=== PATIENT | female | born 1980 | race Caucasian/White ===

== ENCOUNTER 2020-04-26 09:57 | Emergency (ER) | payer OTHER, SELFPAY ==
--- NOTE | 2020-04-26 | ECG_ITS ---
Test Reason : CHEST PAIN Blood Pressure : / mmHG Vent. Rate : 075 BPM Atrial Rate : 075 BPM P-R Int : 134 ms QRS Dur : 068 ms QT Int : 380 ms P-R-T Axes : 070 049 010 degrees QTc Int : 424 ms Normal sinus rhythm with sinus arrhythmia Normal ECG No previous ECGs available Referred By: Generic ED Physician Electronically Signed By:LANE FU
--- NOTE | 2020-04-26 10:30 | ED.GENADULT ---
HPI - General Adult General Chief complaint: Anxiety Stated complaint: chest pain Time Seen by Provider: 04/26/20 10:30 Related Data Allergies Allergy/AdvReac Type Severity Reaction Status Date / Time oxycodone AdvReac Nausea and Verified 04/26/20 10:33 Vomiting PMFSH Past Medical History Medical History (Updated 04/26/20 @ 10:35 by Olimpia Borden) Anxiety Course Course Course Narrative: 1030-This is rapid medical exam. 39 yo female with past medical history of anxiety, panic attacks here with chest pain, bilateral arm pain, anxiety, shortness of breath x several weeks. Not sleeping or eating. Taking hydroxyzine PRN with no relief. No SI/HI. Increased stress at work, also had elective one month ago. Will check EKG, labs. Deferred HPI, ROS and PE to primary provider.
[2020-04-26 10:33] VITALS: BP 109/78; PULSE 76; RESP 18; TEMP 35.8; O2SAT 97; BMI 19.9
[2020-04-26 11:04] LABS: MANUAL DIFF FLAG NO
[2020-04-26 11:07] LABS: Basophils Percent Auto 0.3 % (0-2); Eosinophils Absolute Auto 0.1 X10*3/uL (0.0-0.4); Eosinophils Percent Auto 0.7 % (0-4); Hematocrit 39.2 % (37-47); Hemoglobin 13.2 g/dl (12.0-16.0); Imm Gran Abs Auto 0.05 X10*3/uL (0.00-0.03); Imm Gran Pct Auto 0.4 % (0.0-0.4); Lymphocytes Absolute Auto 2.1 X10*3/uL (1.2-4.9); Lymphocytes Percent Auto 18.3 % (20-40); Mean Corpuscular HGB Conc 33.7 g/dl (31.0-35.0); Mean Corpuscular Hemoglobin 31.3 pg (27.0-33.0); Mean Corpuscular Volume 92.9 fL (80-98); Mean Platelet Volume 8.8 fL (9.4-12.3); Monocytes Absolute Auto 0.9 X10*3/uL (0.1-1.2); Monocytes Percent Auto 7.5 % (2-11); Neutrophils Absolute Auto 8.4 X10*3/uL (2.0-8.3); Neutrophils Percent Auto 72.8 % (45-73); Platelet Count 429 X10*3/uL (160-400); Red Blood Count 4.22 X10*6/uL (4.20-5.50); Red Cell Distribution Width 13.6 % (11.0-16.0); White Blood Count 11.6 X10*3/uL (4.8-10.8)
[2020-04-26 11:25] LABS: UPreg QC Valid YES; Urine Pregnancy WEAKLY POSITIVE (NEGATIVE)
[2020-04-26 11:34] LABS: Alanine Aminotransferase 21 U/L (0-31); Albumin Level 4.5 g/dL (3.5-5.0); Alkaline Phosphatase 58 U/L (39-117); Anion Gap 13 (12-20); Aspartate Amino Transferase 13 U/L (5-31); Bilirubin Direct 0.3 mg/dL (0.0-0.5); Bilirubin Total 0.5 mg/dL (0.0-1.0); Blood Urea Nitrogen 12 mg/dL (9-16); Calcium 9.6 mg/dL (8.4-10.2); Carbon Dioxide 24 mmol/L (22-29); Chloride 109 mmol/L (96-108); Creatinine Clr Calc Pharmacy 79.3; Estimated Glomerular Filt Rate > 60; Glucose Random 87 mg/dL (60-115); Potassium 3.8 mmol/L (3.3-5.1); Sodium 142 mmol/L (135-145); Total Protein 7.2 g/dL (6.5-8.0)
[2020-04-26 11:37] LABS: Troponin-I High Sensitivity < 3.5 ng/L (<3.5-17.0)
[2020-04-26 11:47] LABS: Amphetamine Screen Urine Not Detected (Not Detect); Barbiturates, Urine Not Detected (Not Detect); Benzodiazepines Screen Urine Not Detected (Not Detect); Cannabinoid Screen Urine POSITIVE (Not Detect); Cocaine Screen Urine Not Detected (Not Detect); Opiate Screen Urine Not Detected (Not Detect); Phencyclidine Screen Urine Not Detected (Not Detect)
--- NOTE | 2020-04-26 15:01 | PC.NURSE ---
Pt very tearful and anxious. She reports having an two weeks ago and feels that her hormones may be causing her emotions. 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 She denies SI or wishes to self harm.
--- NOTE | 2020-04-26 15:09 | ED_ITS ---
HPI - General Adult General Chief complaint: Anxiety Stated complaint: chest pain Time Seen by Provider: 04/26/20 10:30 Source: patient Mode of arrival: ambulatory Limitations: no limitations History of Present Illness HPI narrative: 39-year-old female with history of anxiety, patient due to increased stress at work having increased symptoms of anxiety and panic attacks for the 1st few days, which is progressively worsening, patient with anxiety feel overall anxious, chest pain, decreased p.o. intake. Patient had recent medical 2 weeks ago, patient still vaginally spotting blood. (Patient tested weakly positive for urine ) but patient confirmed that she is not anymore, patient is requesting for a strong anxiety medication Ativan will be prescribed because Ativan is known to be class C in patient was aware and confirmed that she willing to take the risk because she only sure she is not anymore. Related Data Previous Rx's Medication Instructions Recorded lorazepam [Ativan] 0.5 mg PO TID PRN #10 tab 04/26/20 Allergies Allergy/AdvReac Type Severity Reaction Status Date / Time oxycodone AdvReac Nausea and Verified 04/26/20 10:33 Vomiting Review of Systems Review of Systems: All other systems are reviewed and are negative Constitutional: Reports as per HPI and Reports no additional constitutional complaints Eyes: Reports as per HPI and Reports no additional eye complaints Reports system reviewed and no additional complaints, except as documented Cardiovascular: Reports as per HPI and Reports no additional cardiovascular complaints Respiratory: Reports as per HPI and Reports no additional respiratory complaints Gastrointestinal: Reports as per HPI and Reports no additional gastrointestinal complaints Genitourinary: Reports no additional female genitourinary complaints Musculoskeletal: Reports no additional musculoskeletal complaints Skin/Breast: Reports system reviewed and no additional complaints, except as docu Psychiatric: Reports no additional psychiatric complaints Endocrine: Reports no additional endocrine complaints Hematologic/Lymphatic: Reports no additional hematologic/lymphatic complaints Allergic/Immunologic: Reports no additional allergic/immunologic complaints Reports system reviewed and no additional complaints, except as documented and Reports Abnormal speech present FORMERLY [facility], [facility] Past Medical History Medical History Anxiety Social History Social History Alcohol intake: never Smoking Status: Never smoker Use of substances other than those prescribed or required for medical reasons: Yes Substance Use Type: Marijuana Advance Directives: No Advance Directives Information Provided: No Physical Exam Vital Signs: Vital Signs: Last Vital Signs Temp 96.4 F L 04/26/20 10:33 Pulse 65 04/26/20 15:13 Resp 11 L 04/26/20 15:13 BP 113/60 04/26/20 15:13 Pulse Ox 97 04/26/20 15:13 Body Mass Index 19.9 Vital signs have been reviewed as normal and appeared to be correct. Blood pressure normal. Heart rate normal. Respiration rate normal. Temperature normal. Oxygen saturation normal. Appearance: Alert. Oriented X3. Appear anxious, No acute distress. Head: Normal external exam. Normocephalic. Atraumatic. No Delgado signs noted. No raccoon eyes noted Eyes: PERRLA. EOMI. Conjunctiva and sclera normal. Eyelids normal. ENT:TM's Normal. Pharynx normal. Uvula midline. Moist mucous membranes. No trismus noted. No drooling noted. No muffled voice noted. Neck: Normal inspection. Neck supple. FROM. No adenopathy. Thyroid Normal. No meningeal signs. No neck mass noted. CVS: Normal heart rate and rhythm. Heart sound normal. No murmurs noted. Pulses normal throughout. Respiratory: No respiratory distress. Painless inspiration. Breath sounds normal. No wheezes/rales/rhonchi noted. Chest nontender. No accessory muscle usage noted or decreased air movement noted. Abdomen: Soft and nontender. Bowel sounds normal in all 4 quadrants. No distention noted. No organomegaly noted. No visible injury noted. Back: No CVA tenderness. Full range of motion noted. Skin: Skin warm and dry. Normal skin color. Normal skin turgor. No rashes/lesions/lacerations noted. Extremities: No lower extremity edema. Extremities exhibit normal range of motion. Extremities nontender. Neuro: Oriented X 3. No motor deficit. No sensory deficit. Reflexes normal. Course Course Course Narrative: Assessment and plan. 39-year-old female with few days of worsening of anxiety and panic attacks, patient is well-known history of anxiety and bad panic attacks, patient had some stressful life at work, patient also had recent medical which she thinks is triggering her symptoms, patient has no SI, no HI, no hallucination. Chest pain patient with HEART score of 0. History, physical exam, labs, EKGs, making cardiac or pulmonary etiology to her pain is extremely a likely. Patient was instructed to repeat test and few days to confirm still negative. Medical Decision Making Lab Data Lab results reviewed: Yes I reviewed the patient's lab results. Result diagrams: 04/26/20 10:52 04/26/20 10:52 Labs: Lab Results 04/26/20 04/26/20 04/26/20 Range/Units 10:52 10:52 10:52 WBC 11.6 H (4.8-10.8) X10*3/uL RBC 4.22 (4.20-5.50) X10*6/uL Hgb 13.2 (12.0-16.0) g/dl Hct 39.2 (37-47) % MCV 92.9 (80-98) fL MCH 31.3 (27.0-33.0) pg MCHC 33.7 (31.0-35.0) g/dl RDW 13.6 (11.0-16.0) % Plt Count 429 H (160-400) X10*3/uL MPV 8.8 L (9.4-12.3) fL Immature Gran % (Auto) 0.4 (0.0-0.4) % Neut % (Auto) 72.8 (45-73) % Lymph % (Auto) 18.3 L (20-40) % [place] % (Auto) 7.5 (2-11) % Eos % (Auto) 0.7 (0-4) % Baso % (Auto) 0.3 (0-2) % Lymph # (Auto) 2.1 (1.2-4.9) X10*3/uL [place] # (Auto) 0.9 (0.1-1.2) X10*3/uL Eos # (Auto) 0.1 (0.0-0.4) X10*3/uL Baso # (Auto) 0.0 (0.0-0.2) X10*3/uL Abs Immat Gran (auto) 0.05 H (0.00-0.03) X10*3/uL Absolute Neuts (auto) 8.4 H (2.0-8.3) X10*3/uL Absolute Nucleated RBC 0.000 (0.0-0.012) X10*3/uL Nucleated RBC % (auto) 0.0 (0.0-0.2) /100WBC D-Dimer 215 NG/ML Hold Blue Top SEE NOTE Sodium 142 (135-145) mmol/L Potassium 3.8 (3.3-5.1) mmol/L Chloride 109 H (96-108) mmol/L Carbon Dioxide 24 (22-29) mmol/L Anion Gap 13 (12-20) BUN 12 (9-16) mg/dL Creatinine 0.67 (0.5-1.4) mg/dL Estim Creat Clear Calc 79.3 Estimated GFR > 60 Random Glucose 87 (60-115) mg/dL Calcium 9.6 (8.4-10.2) mg/dL Total Bilirubin 0.5 (0.0-1.0) mg/dL Direct Bilirubin 0.3 (0.0-0.5) mg/dL AST 13 (5-31) U/L ALT 21 (0-31) U/L Alkaline Phosphatase 58 (39-117) U/L Troponin I High Sens (<3.5-17.0) ng/L Total Protein 7.2 (6.5-8.0) g/dL Albumin 4.5 (3.5-5.0) g/dL Beta HCG, Quant 86 mIU/mL Urine Test (NEGATIVE) Urine Opiates Screen (Not Detect) Ur Barbiturates Screen (Not Detect) Ur Phencyclidine Scrn (Not Detect) Ur Amphetamines Screen (Not Detect) U Benzodiazepines Scrn (Not Detect) Urine Cocaine Screen (Not Detect) U Marijuana (THC) Screen (Not Detect) 04/26/20 04/26/20 04/26/20 Range/Units 10:52 11:01 11:01 WBC (4.8-10.8) X10*3/uL RBC (4.20-5.50) X10*6/uL Hgb (12.0-16.0) g/dl Hct (37-47) % MCV (80-98) fL MCH (27.0-33.0) pg MCHC (31.0-35.0) g/dl RDW (11.0-16.0) % Plt Count (160-400) X10*3/uL MPV (9.4-12.3) fL Immature Gran % (Auto) (0.0-0.4) % Neut % (Auto) (45-73) % Lymph % (Auto) (20-40) % [place] % (Auto) (2-11) % Eos % (Auto) (0-4) % Baso % (Auto) (0-2) % Lymph # (Auto) (1.2-4.9) X10*3/uL [place] # (Auto) (0.1-1.2) X10*3/uL Eos # (Auto) (0.0-0.4) X10*3/uL Baso # (Auto) (0.0-0.2) X10*3/uL Abs Immat Gran (auto) (0.00-0.03) X10*3/uL Absolute Neuts (auto) (2.0-8.3) X10*3/uL Absolute Nucleated RBC (0.0-0.012) X10*3/uL Nucleated RBC % (auto) (0.0-0.2) /100WBC D-Dimer NG/ML Hold Blue Top Sodium (135-145) mmol/L Potassium (3.3-5.1) mmol/L Chloride (96-108) mmol/L Carbon Dioxide (22-29) mmol/L Anion Gap (12-20) BUN (9-16) mg/dL Creatinine (0.5-1.4) mg/dL Estim Creat Clear Calc Estimated GFR Random Glucose (60-115) mg/dL Calcium (8.4-10.2) mg/dL Total Bilirubin (0.0-1.0) mg/dL Direct Bilirubin (0.0-0.5) mg/dL AST (5-31) U/L ALT (0-31) U/L Alkaline Phosphatase (39-117) U/L Troponin I High Sens < 3.5 (<3.5-17.0) ng/L Total Protein (6.5-8.0) g/dL Albumin (3.5-5.0) g/dL Beta HCG, Quant mIU/mL Urine Test WEAKLY POSITIVE H (NEGATIVE) Urine Opiates Screen Not Detected (Not Detect) Ur Barbiturates Screen Not Detected (Not Detect) Ur Phencyclidine Scrn Not Detected (Not Detect) Ur Amphetamines Screen Not Detected (Not Detect) U Benzodiazepines Scrn Not Detected (Not Detect) Urine Cocaine Screen Not Detected (Not Detect) U Marijuana (THC) Screen POSITIVE H (Not Detect) ECG Data Interpretation: Normal sinus rhythm with sinus arrhythmia at 75 beats per minute, normal axis deviation, normal intervals, no ST-T changes. Discharge Plan Discharge Clinical Impression: Acute anxiety, Panic disorder, Non-cardiac chest pain Patient Disposition: Home, Self-Care Instructions: Anxiety (ED) Prescriptions: New lorazepam [Ativan] 0.5 mg tablet 0.5 mg PO TID PRN (Reason: anxiety) Qty: 10 RF: 0 Referrals: Karin Mathew NP [Primary Care Provider] - 2 days Stand Alone Forms: Work/School Release
[2020-04-26 15:13] VITALS: BP 113/60; PULSE 65; RESP 11; O2SAT 97
[2020-04-26] MEDS: LORazepam 1 MG TABLET PO (15:16)
[2020-04-26 15:24] LABS: D Dimer 215 NG/ML
[2020-04-26 15:36] LABS: HCG Quantitative 86 mIU/mL
== END 2020-04-26 16:27 | disposition home or self-care (01) ==
PROVIDERS: Nurse Practitioner Family; Emergency Provider Emergency Medicine; PCP Nurse Practitioner Family
DX: R07.89 Other chest pain (principal); F41.9 Anxiety disorder, unspecified; F43.0 Acute stress reaction; Z79.899 Other long term (current) drug therapy
CPT/HCPCS: 36415; 80048; 80076; 80307; 81025; 84484; 84702; 85025; 85379; 93005; 99284

== ENCOUNTER 2023-12-04 16:01 | Emergency (ER) | payer OTHER, SELFPAY ==
[2023-12-04 16:21] VITALS: BP 145/98; PULSE 96; RESP 20; TEMP 37; O2SAT 98; BMI 24.2
--- NOTE | 2023-12-04 16:25 | ED.GENADULT ---
HPI - General Adult General Chief complaint: Nausea/Vomiting/Diarrhea Stated complaint: vomiting Time Seen by Provider: 12/04/23 21:43 Source: patient Mode of arrival: ambulatory Limitations: no limitations History of Present Illness ED Provider: Dr. Demetri Mills HPI narrative: 43-year-old female with a history of depression anxiety which she attributes to stopping her Effexor tablets. She states that her [facility] crisis counselor wanted to increase her Effexor tablets however she ran out of this medication and has been off them for several days. She believes that she was now withdrawing from this medication in his having increased anxiety attacks. She states that she feels very anxious. She feels jittery. She has nausea and vomiting. She also states she was experiencing headaches since being off her Effexor. She denied fever, chills, rhinorrhea, sore throat, chest pain, shortness of breath. She has had cough, nausea and vomiting with no diarrhea. She denied myalgias arthralgias Related Data Previous Rx's ?Medication ?Instructions ?Recorded lorazepam 0.5 mg tablet (Ativan) 0.5 mg PO TID PRN anxiety #10 tabs 04/26/20 ondansetron 4 mg disintegrating 4 mg PO Q6-8H PRN nausea and 12/04/23 tablet vomiting #14 tabs venlafaxine 75 mg capsule,extended 75 mg PO DAILY 90 days #90 caps 12/04/23 release 24 hr Allergies Allergy/AdvReac Type Severity Reaction Status Date / Time oxycodone AdvReac Nausea and Verified 12/04/23 16:25 Vomiting Review of Systems Review of Systems: Yes all other systems are reviewed and are negative REPLACED BY [facility] Past Medical History Medical History Anxiety Social History Social History Alcohol intake: never Substance Use Type: Marijuana Advance Directives: No Advance Directives Information Provided: No Do you have a plan to hurt others: No Plan Physical Exam ED Vital Signs: Vital Signs - 24 hr 12/04/23 16:21 12/04/23 20:10 12/04/23 21:19 Temperature 98.6 F 96.6 F L 98.3 F Pulse Rate 96 72 73 Respiratory Rate 20 20 16 Blood Pressure 145/98 H 110/73 136/70 Pulse Oximetry 98 97 100 Oxygen Delivery Method Room Air Room Air Room Air BMI result Body Mass Index 24.2 Vital signs initially revealed an elevated blood pressure but this corrected over time without treatment. Exam: General: Awake, alert in no distress, appears to be anxious Head: Normocephalic, atraumatic EENT: PERRL, Lids normal, sclera normal, conjunctiva normal, nose normal , ears normal, throat without erythema or exudates Neck: Supple, no adenopathy Lung: breath sounds symmetric, no wheezing, rales or rhonchi Chest: symmetric movement, nontender Heart: regular rate and rhythm, normal S1, S2 no murmurs or rubs Abdomen: soft, non-tender, nondistended, normal bowel sounds Back: no vertebral tenderness, no CVAT Extremities: no deformities, moves all extremities symmetrically Neuro: Awake, alert, oriented, normal speech, cranial nerves intact, moves all extremities symmetrically Psych: Pleasant, cooperative, anxious Course Course Course Narrative: This is a Rapid Medical Examination (RME) performed by Aly Fraser PA-C in triage. Full HPI, ROS, assessment and treatment plan per primary provider in the Main ED. 43 yo female here w/ multiple episodes of vomiting today. deneis abdominal pain or fever. has been unable to take her venlafaxine x3 days d/t vomiting. no known sick contacts. denies cp, sob, diarrhea. + abd soft, ND/NT. no rebound or guarding. Plan: labs, UA, u preg Medications Administered Discontinued Medications Generic Name Dose Route Start Last Admin Trade Name Cait PRN Reason Stop Dose Admin Ondansetron HCl 4 mg 12/04/23 16:25 12/04/23 16:27 Ondansetron Odt 4 Mg Tab.Rapdis TRANSLINGU 12/04/23 16:26 4 mg ONCE ONE Administration Ondansetron HCl 4 mg 12/04/23 21:58 12/04/23 22:17 Ondansetron Odt 4 Mg Tab.Rapdis TRANSLINGU 12/04/23 21:59 4 mg ONCE STA Administration Medical Decision Making Medical Decision Making MDM Narrative: 43-year-old female who presents emergency department for evaluation of multiple complaints which she attributes to withdrawal symptoms from stopping her Effexor 3 days prior. Vital signs did reveal an elevated blood pressure but this resolved without any treatment. The patient does appear to be anxious otherwise exam is unremarkable. Differential diagnosis: ?Includes but is not limited to withdrawal from Effexor, anxiety, panic attack, palpitations, anemia, electrolyte abnormalities Following evaluation was ordered: CBC, CMP, lipase, magnesium, urinalysis, urine test, COVID-19, influenza, RSV Patient was initially treated with the following: Zofran 4 mg ODT Course: My independent interpretation is as follows: WBC elevated 14,300 no anemia with an H&H of 15.4 and 43.8. CMP was normal. Urinalysis was positive for protein, blood, leukocyte esterase. Microscopic revealed greater than 20 RBCs, 0-5 WBCs, 6-10 squamous cells, 1+ bacteria-this is not a clean-catch specimen The patient did feel better after receiving Zofran 4 mg ODT. The patient will be restarted on her Effexor ER 75 mg daily and I did give her a 90 day supply. She was given printed and verbal instructions and discharged home Lab Data MDM Lab Attestation statement: I reviewed the patient's lab results. 12/04/23 16:47 12/04/23 16:47 Labs: Lab Results 12/04/23 Range/Units 16:47 WBC 14.3 H (4.8-10.8) X10*3/uL RBC 4.81 (4.20-5.50) X10*6/uL Hgb 15.4 (12.0-16.0) g/dl Hct 43.8 (37.0-47.0) % MCV 91.1 (80.0-98.0) fL MCH 32.0 (27.0-33.0) pg MCHC 35.2 H (31.0-35.0) g/dl RDW 13.0 (11.0-16.0) % Plt Count 375 (160-400) X10*3/uL MPV 8.9 L (9.4-12.3) fL Immature Gran % (Auto) 0.5 H (0.0-0.4) % Neut % (Auto) 68.6 (45-73) % Lymph % (Auto) 23.0 (20-40) % [place] % (Auto) 6.9 (2-11) % Eos % (Auto) 0.5 (0-4) % Baso % (Auto) 0.5 (0-2) % Lymph # (Auto) 3.3 (1.2-4.9) X10*3/uL [place] # (Auto) 1.0 (0.1-1.2) X10*3/uL Eos # (Auto) 0.1 (0.0-0.4) X10*3/uL Baso # (Auto) 0.1 (0.0-0.2) X10*3/uL Abs Immat Gran (auto) 0.07 H (0.00-0.03) X10*3/uL Absolute Neuts (auto) 9.8 H (2.0-8.3) x10*3/uL Absolute Nucleated RBC 0.000 (0.0-0.012) X10*3/uL Nucleated RBC % (auto) 0.0 (0.0-0.2) /100WBC Sodium 144 (135-145) mmol/L Potassium 3.8 (3.3-5.1) mmol/L Chloride 111 H (96-108) mmol/L Carbon Dioxide 22 (22-29) mmol/L Anion Gap 15 (12-20) BUN 12 (9-16) mg/dL Creatinine 0.78 (0.5-1.4) mg/dL Estim Creat Clear Calc 68.5 Estimated GFR > 60 Random Glucose 98 (60-115) mg/dL Calcium 10.2 D (8.4-10.2) mg/dL Magnesium 2.4 (1.6-2.6) mg/dL Total Bilirubin 0.6 (0.0-1.0) mg/dL AST 19 (5-31) U/L ALT 23 (0-31) U/L Alkaline Phosphatase 71 (39-117) U/L Total Protein 7.8 (6.5-8.0) g/dL Albumin 4.7 (3.5-5.0) g/dL Lipase 17 (8-78) U/L Urine Color Dark Yellow Urine Appearance Turbid Urine pH 8.0 (5.0-9.0) Ur Specific [place] >= 1.030 H (1.005-1.025) Urine Protein 30 (1+) H (Neg-Trace) mg/dL Urine Glucose (UA) Negative (Negative) mg/dL Urine Ketones 40 (Negative) mg/dL Urine Blood Moderate (2+) H (Negative) Urine Nitrite Negative (Negative) Ur Leukocyte Esterase Small (1+) H (Negative) Urine RBC >20 H (0-2) /HPF Urine WBC 0-5 (0-5) /HPF Ur Squamous Epith Cells 6-10 (0-2) /HPF Urine Bacteria 1+ (None Seen) Hyaline Casts 0-2 (0-2) /LPF Urine Test NEGATIVE (NEGATIVE) Influenza Type A (PCR) NEGATIVE (Negative) Influenza Type B (PCR) NEGATIVE (Negative) RSV RNA Qual (PCR) NEGATIVE (Negative) SARS-CoV-2 RNA (RT-PCR) NEGATIVE (Negative) Prescription Management I considered prescription management with: Other (Antianxiety medication) Chronic Conditions Patient?s care impacted by: Other (Depression, anxiety) Discharge Plan Discharge Clinical Impression: Nausea & vomiting Patient Disposition: Home, Self-Care Additional Instructions: Your blood work was unremarkable. Your COVID-19, influenza and RSV tests were negative Take venlafaxine extended release 75 mg pills, take 1 pill daily. I want you to talk to your prescribing provider to discuss further management of your depression and anxiety. Stay on this medication until you can be re-evaluated. Take Zofran ODT 4 mg pills, 1 pill dissolved in your mouth every 8 hours as needed for nausea and vomiting. Follow-up with your doctor in 2 days. Please return to the emergency department if your symptoms get worse or if you develop any symptoms that are concerning to you. Prescriptions: New ondansetron 4 mg tablet,disintegrating 4 mg PO Q6-8H PRN (Reason: nausea and vomiting) Qty: 14 0RF venlafaxine 75 mg capsule,extended release 24hr 75 mg PO DAILY 90 Days Qty: 90 0RF No Action lorazepam [Ativan] 0.5 mg tablet 0.5 mg PO TID PRN (Reason: anxiety) Qty: 10 0RF Interventions: ED Discharge Assessment Last Done: 12/04/23 22:37 Discharge Date/Time: 12/04/23 22:39 Print Language: Cuban
[2023-12-04] MEDS: Ondansetron ODT 4 MG TAB.RAPDIS TRANSLINGU ×2 (16:27→22:17)
[2023-12-04 16:53] LABS: MANUAL DIFF FLAG NO
[2023-12-04 16:54] LABS: Basophils Absolute Auto 0.1 X10*3/uL (0.0-0.2); Basophils Percent Auto 0.5 % (0-2); Eosinophils Absolute Auto 0.1 X10*3/uL (0.0-0.4); Eosinophils Percent Auto 0.5 % (0-4); Hematocrit 43.8 % (37.0-47.0); Hemoglobin 15.4 g/dl (12.0-16.0); Imm Gran Abs Auto 0.07 X10*3/uL (0.00-0.03); Imm Gran Pct Auto 0.5 % (0.0-0.4); Lymphocytes Absolute Auto 3.3 X10*3/uL (1.2-4.9); Mean Corpuscular HGB Conc 35.2 g/dl (31.0-35.0); Mean Corpuscular Volume 91.1 fL (80.0-98.0); Mean Platelet Volume 8.9 fL (9.4-12.3); Monocytes Percent Auto 6.9 % (2-11); Neutrophils Absolute Auto 9.8 x10*3/uL (2.0-8.3); Neutrophils Percent Auto 68.6 % (45-73); Platelet Count 375 X10*3/uL (160-400); Red Blood Count 4.81 X10*6/uL (4.20-5.50); White Blood Count 14.3 X10*3/uL (4.8-10.8)
[2023-12-04 16:55] LABS: Appearance Urine Turbid; Color Urine Dark Yellow; Glucose Urine UA Negative (Negative); Leukocyte Esterase Urine Small (1+) (Negative); Nitrite Urine Negative (Negative); Specific Gravity - Urine >= 1.030 (1.005-1.025); UMIC TRIGGER UACC YES; Urine Blood Moderate (2+) (Negative); Urine Ketones 40 mg/dL (Negative); Urine Protein 30 (1+) mg/dL (Neg-Trace)
[2023-12-04 16:56] LABS: UPreg QC Valid YES; Urine Pregnancy NEGATIVE (NEGATIVE)
--- OUTSIDE RECORDS SUMMARY | 2023-12-04 17:00 | XMS_ITS | Continuity of Care Document ---
Author Organization [facility] Address [address] [place] [address]- Care Team Providers Care Lab Analyst Name Role Phone Felecia Miller NP Primary Care Physician Encounter [facility] [place] Date(s): 09/03/21 - 10/03/21 [facility] [address] [place] [address]- Attending Physician: AdmCurtis villanueva Admitting Physician: AdmtrCurtis Referring Physician: Admtr, [id number] Allergies, Adverse Reactions, Alerts Substance Reaction Severity Status methadone-like opiates Activ e Immunizations Given and Recorded Vaccine Date Status Refusal Reason tetanus/diphtheria/pertussis, acel(Tdap) 03/23/08 Recorded Medications Albuterol (Eqv-Proventil HFA) 90 mcg/inh inhalation aerosol See Instructions, INHALE 2 PUFFS BY MOUTH EVERY 6 HOURS X14 DAYS NEEDED WHEEZING/SHORTNESS OF BREATH, # 6.7 each, 0 Refills, 07/16/21 9:21:00 EDT, [id number], 153, cm, 03/28/21 11:00:00 EST, Height Start Date: 07/16/21 Status: Ordered cetirizine 10 mg oral tablet See Instructions, 1 tablet By Mouth Daily for itchy skin, # 30 tablet, 1 Refills, Maintenance, 09/03/21 15:59:00 EDT, Tablet, [id number], Partial fill upon patient request if the prescriptionis for a schedule II opioid drug., 153, cm, ... Start Date: 09/03/21 Status: Ordered citalopram 20 mg oral tablet 20 mg, 1, tablet, By Mouth, Daily, # 90 tablet, Refills 3, Tot. Refills 3, Maintenance, 03/28/21 11:31:00 EST, Route to Pharmacy Electronically, [id number], 153, cm, 03/28/21 11:00:00 EST, Height Start Date: 03/28/21 Stop Date: 05/27/21 Status: Ordered hydrOXYzine hydrochloride 25 mg oral tablet 1 tablet = 25 mg, By Mouth, 3 times a day, PRN as needed for anxiety, PRN anxiety/panic attacks needs office visit, # 90 tablet, 1 Refills, Maintenance, 03/28/21 11:32:00 EST, Tablet, [facility] #[id number], 153, cm, 03/28/21 11:00:00 EST, Height Start Date: 03/28/21 Stop Date: 05/27/21 Status: Ordered Xulane 150 mcg-35 mcg/24 hr transdermal film, extended release 1 patch, Topically, Every week, APPLY 1 PATCH EVERY WEEK, # 3 each, 11 Refills, Maintenance, 03/28/21 11:33:00 EST, [facility] #[id number], 1 patch Topically Every week,x21 days,Instr:APPLY 1 PATCH EVERYWEEK, 153, cm, 03/28/21 11:00:00 EST, Height Start Date: 03/28/21 Stop Date: 12/05/21 Status: Ordered Problem List Condition Effective Dates Status Health Status Inform ant Generalized anxiety disorder with panic attacks(Confirmed) Active Shingles(Confirmed) Active Anxiety and depression(Confirmed) Active 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) Active Seasonal allergies(Confirmed) Active Social History Social History Type Response Tobacco Other: quit Dec, or to this sporadic. Sex
--- OUTSIDE RECORDS SUMMARY | 2023-12-04 17:00 | XMS_ITS | Continuity of Care Document ---
Author Organization [facility] Address [address] [place] [address]- Care Team Providers Care Cathead Worker Name Role Phone Quincy SLATRE, Karin Primary Care Physician En[place] [facility] [place] Date(s): 05/30/20 - 09/27/20 [facility] [address] [place] [address]- Attending Physician: Karin Mathew NP Allergies, Adverse Reactions, Alerts Substance Reaction Severity Status methadone-like opiates Activ e Immunizations Given and Recorded Vaccine Date Status Refusal Reason tetanus/diphtheria/pertussis, acel(Tdap) 03/23/08 Recorded Medications citalopram 20 mg oral tablet 20 mg, 1, tablet, By Mouth, Daily, # 30 tablet, Refills 5, Tot. Refills 5, Maintenance, 04/30/20 7:59:00 EST, Route to Pharmacy Electronically, [facility]/pharmacy #[id number], 153, cm, 04/30/20 7:35:00 EST, Height, 52.2, kg, 01/14/19 15:05:00 EDT, Dry Weight Start Date: 04/30/20 Stop Date: 10/27/20 Status: Ordered hydrOXYzine hydrochloride 25 mg oral tablet 1 tablet = 25 mg, By Mouth, 3 times a day, PRN as needed for anxiety, PRN anxiety/panic attacks needs office visit, # 90 tablet, 5 Refills, Maintenance, 05/01/20 9:52:00 EST, Tablet, [facility]/pharmacy #[id number], 153, cm, 04/30/20 7:35:00 EST, Height, 52.2, kg... Start Date: 05/01/20 Stop Date: 10/28/20 Status: Ordered LORazepam 0.5 mg oral tablet 1 tablet = 0.5 mg, By Mouth, 2 times a day, PRN as needed for anxiety, # 21 tablet, 1 Refills, Maintenance, 05/07/20 13:49:00 EST, Tablet, [facility]/pharmacy #[id number], Partial fill upon patient request if theprescription is for a schedule II opioid drug., 153... Start Date: 05/07/20 Status: Ordered Xulane 150 mcg-35 mcg/24 hr transdermal film, extended release 1 patch, Topically, Every week, APPLY 1 PATCH EVERY WEEK, # 3 each, 11 Refills, Maintenance, 01/14/19 15:47:54 EDT, [facility]/pharmacy #[id number] Start Date: 01/14/19 Stop Date: 09/23/19 Status: Ordered Problem List Condition Effective Dates Status Health Status Inform ant Generalized anxiety disorder with panic attacks(Confirmed) Active Shingles(Confirmed) Active Anxiety and depression(Confirmed) Active Seasonal allergies(Confirmed) Active Social History Social History Type Response Tobacco Other: quit Dec, or to this sporadic. Sex
--- OUTSIDE RECORDS SUMMARY | 2023-12-04 17:00 | XMS_ITS | Continuity of Care Document ---
Author Organization [facility] Address [address] [place] [address]- Care Team Providers Care Video Conference Specialist Name Role Phone Quincy SLATER, Karin Primary Care Physician Encounter [facility] [place] Date(s): 09/15/19 - 10/15/19 [facility] [address] [place] [address]- [facility] Attending Physician: Curtis Cerda Admitting Physician: Curtis Cerda Referring Physician: AdmtrCurtis Allergies, Adverse Reactions, Alerts Substance Reaction Severity Status methadone-like opiates Activ e Immunizations Given and Recorded Vaccine Date Status Refusal Reason tetanus/diphtheria/pertussis, acel(Tdap) 03/23/08 Recorded Medications citalopram 20 mg oral tablet 20 mg, 1, tablet, By Mouth, Daily, # 30 tablet, Refills 5, Tot. Refills 5, Maintenance, 08/17/19 8:18:00 EDT, Route to Pharmacy Electronically, [facility]/pharmacy #[id number], 153, cm, 08/17/19 7:55:00 EDT, Height, 52.2, kg, 01/14/19 15:05:00 EDT, Dry Weight Start Date: 08/17/19 Status: Ordered hydrOXYzine hydrochloride 25 mg oral tablet 1 tablet = 25 mg, By Mouth, 3 times a day, PRN as needed for anxiety, PRN anxiety/panic attacks needs office visit, # 90 tablet, 5 Refills, Maintenance, 08/17/19 8:18:00 EDT, Tablet, [facility]/pharmacy #[id number], 153, cm, 08/17/19 7:55:00 EDT, Height, 52.2, kg... Start Date: 08/17/19 Stop Date: 02/13/20 Status: Ordered Xulane 150 mcg-35 mcg/24 hr transdermal film, extended release 1 patch, Topically, Every week, APPLY 1 PATCH EVERY WEEK, # 3 each, 11 Refills, Maintenance, 01/14/19 15:47:54 EDT, 1 patch Topically Every week,x21 days,Instr:APPLY 1 PATCH EVERY WEEK Start Date: 01/14/19 Stop Date: 09/23/19 Status: Ordered Problem List Condition Effective Dates Status Health Status Inform ant Shingles(Confirmed) Active Anxiety and depression(Confirmed) Active Seasonal allergies(Confirmed) Active Social History Social History Type Response Tobacco Other: quit Dec, or to this sporadic. Sex
--- OUTSIDE RECORDS SUMMARY | 2023-12-04 17:00 | XMS_ITS | Continuity of Care Document ---
Author Organization [facility] ter Address [address] [place] [address]- Care Team Providers Care Print Decorator Name Role Phone Bjorn Ken MUÑOZ Primary Care Physician [phone] Encounter [facility] [place] Date(s): 12/01/22 - 01/02/[address] [address] Attending Physician: Carri Irizarry NP Admitting Physician: Carri Irizarry NP Referring Physician: Carri Irizarry NP Allergies, Adverse Reactions, Alerts Substance Reaction Severity Status methadone-like opiates Activ e Immunizations Given and Recorded Vaccine Date Status Refusal Reason tetanus/diphtheria/pertussis, acel(Tdap) 03/23/08 Recorded Medications citalopram 10 mg oral tablet 1 tablet, By Mouth, Daily, TD: 30MG), # 90 tablet, 1 Refills, Maintenance, 12/20/22 12:36:00 EDT, [id number], 153, cm, 10/02/22 9:17:00 EDT, Height Start Date: 12/20/22 Status: Ordered hydrOXYzine hydrochloride 25 mg oral tablet 1 tablet, By Mouth, 3 times a day, PRN NEEDED, ANXIETY/PANIC ATTACKS NEEDS OFFICE VISIT., # 270 tablet, 0 Refills, Maintenance, 12/22/22 10:22:00 EDT, [id number], 153, cm, 10/02/22 9:17:00 EDT, Height Start Date: 12/22/22 Status: Ordered LORazepam 0.5 mg oral tablet 1 tablet = 0.5 mg, By Mouth, Daily, PRN as needed for anxiety, Do not use daily, # 7 tablet, 0 Refills, Maintenance, 10/21/22 16:11:00 EDT, Tablet, [id number], Partial fill upon patient request if the prescription is for a schedule II opioid d... Start Date: 10/21/22 Stop Date: 11/20/22 Status: Ordered Xulane 150 mcg-35 mcg/24 hr transdermal film, extended release See Instructions, APPLY 1 PATCH TOPICALLY EVERY WEEK FOR 21 DAYS, APPLY 1 PATCH EVERY WEEK, # 9 patch, 3 Refills, Maintenance, 07/08/22 13:25:00 EDT, [id number], 84, APPLY 1 PATCH TOPICALLY EVERY WEEK FOR 21 DAYS, APPLY 1 PATCH EVERY WEEK, 153, c... Start Date: 07/08/22 Status: Ordered Problem List Condition Confirmation Course Effective Dates Status Health St atus Informant Generalized anxiety disorder with panic attacks Confirmed Active Shingles Confirmed Active Anxiety and depression Confirmed Active MDD (recurrent major depressive disorder) in remission Confirmed Active Seasonal allergies Confirmed Active Social History Social History Type Response Smoking Status Smoker, current stat us unknown; Type: Cigarettes; Other: restarted recently due to panic attack (10/02/2022); entered on: 10/02/22 Sex Patient Care team information Care Team Personnel Name: Ken Milan DO Position: [facility] Physician - Primary Care Member Role: PCP Address: Address: [address] [place] [address]- [place] Care Team Related Persons Name: SUAD PARKER Name: GUERO DYKES Address: home [address] [place] [address] Name: MYRA HOSKINS Address: home [address] [place] [address]
--- OUTSIDE RECORDS SUMMARY | 2023-12-04 17:00 | XMS_ITS | Continuity of Care Document ---
Author Organization [facility] Address [address] [place] [address]- Care Team Providers Care Electronics Test Engineer Name Role Phone Bjorn Ken Primary Care Physician [phone] [place] [facility] [place] Date(s): 10/21/22 - 11/20/22 [facility] [address] [place] [address]- Allergies, Adverse Reactions, Alerts Substance Reaction Severity Status methadone-like opiates Activ e Immunizations Given and Recorded Vaccine Date Status Refusal Reason tetanus/diphtheria/pertussis, acel(Tdap) 03/23/08 Recorded Medications citalopram 10 mg oral tablet See Instructions, 1 tablet By Mouth Daily with a 20 mg tablet (TD: 30mg), # 90 tablet, Refills 0, Tot. Refills 0, Maintenance, 10/02/22 10:03:00 EDT, Instructions Replace Required Details, Route to Pharmacy Electronically, [id number], Partial... Start Date: 10/02/22 Status: Ordered citalopram 20 mg oral tablet 1 tablet, By Mouth, Daily, # 90 tablet, 1 Refills, Maintenance, 01/06/22 13:02:00 EDT, [id number], Office visit needed for further refills., 153, cm, 09/03/21 15:32:00 EDT, Height Start Date: 01/06/22 Status: Ordered hydrOXYzine hydrochloride 25 mg oral tablet 1 tablet = 25 mg, By Mouth, 3 times a day, PRN as needed for anxiety, PRN anxiety/panic attacks needs office visit, # 90 tablet, 5 Refills, Maintenance, 05/19/22 11:16:00 EST, Tablet, [id number], 153, cm, 04/21/22 10:08:00 EST, Height Start Date: 05/19/22 Stop Date: 11/15/22 Status: Ordered LORazepam 0.5 mg oral tablet [...] Refills, Maintenance, 07/08/22 13:25:00 EDT, [id number], 84, APPLY 1 PATCH TOPICALLY EVERY WEEK [...] Team Personnel Name: Ken Milan DO Position: [facility] Physician - Primary Care Member Role: PCP Address: Address: [address] [place] [address]- [place] Care Team Related Persons Name: SUAD PARKER Name: GUERO DYKES Address: home [address] [place] [address] Name: MYRA HOSKINS Address: home [address] [place] [address]
--- OUTSIDE RECORDS SUMMARY | 2023-12-04 17:00 | XMS_ITS | Continuity of Care Document ---
Author Organization [facility] Address [address] [place] [address]- Care Team Providers Care Gunner Mate Name Role Phone Angela SLATER, Felecia Gannon Primary Care Physician [place] [facility] [place] 09/12/21 [facility] [address] [place] [address]- Attending Physician: Rimma Sims MD Allergies, Adverse Reactions, Alerts Substance Reaction Severity [...] 03/28/21 11:31:00 EST, Route to Pharmacy Electronically, [facility]/pharmacy #[id number], 153, cm, 03/28/21 11:00:00 EST, Height Start Date: 03/28/21 Stop Date: 05/27/21 Status: Ordered hydrOXYzine hydrochloride 25 mg oral tablet 1 tablet = 25 mg, By Mouth, 3 times a day, PRN as needed for anxiety, PRN anxiety/panic attacks needs office visit, # 90 tablet, 1 Refills, Maintenance, 03/28/21 11:32:00 EST, Tablet, [facility]/pharmacy #[id number], 153, cm, 03/28/21 11:00:00 EST, Height Start Date: 03/28/21 Stop Date: 05/27/21 Status: Ordered Xulane 150 mcg-35 mcg/24 hr transdermal film, extended release 1 patch, Topically, Every week, APPLY 1 PATCH EVERY WEEK, # 3 each, 11 Refills, Maintenance, 03/28/21 11:33:00 EST, [facility]/pharmacy #[id number], 1 patch Topically Every week,x21 days,Instr:APPLY [...]
--- OUTSIDE RECORDS SUMMARY | 2023-12-04 17:00 | XMS_ITS | Continuity of Care Document ---
Author Organization [facility] ter Address [address] [place] [address]- Care Team Providers Care Tape Librarian Name Role Phone Angela SLATER, Felecia Gannon Primary Care Physician [id number] Date(s): 06/10/21 - 08/12/[address] [address]- Attending Physician: Felecia Miller NP Admitting Physician: Felecia Miller NP Referring Physician: Felecia Miller NP Allergies, Adverse Reactions, Alerts Substance Reaction Severity Status methadone-like opiates Activ e Immunizations Given and Recorded Vaccine Date Status Refusal Reason tetanus/diphtheria/pertussis, acel(Tdap) 03/23/08 Recorded Medications Albuterol (Eqv-Proventil HFA) 90 mcg/inh inhalation aerosol See Instructions, INHALE 2 PUFFS BY MOUTH EVERY 6 HOURS X14 DAYS NEEDED WHEEZING/SHORTNESS OF BREATH, # 6.7 each, 0 Refills, 07/16/21 9:21:00 EDT, [facility]/pharmacy #[id number], 153, cm, 03/28/21 11:00:00 EST, Height Start Date: 07/16/21 Status: Ordered citalopram 20 mg oral tablet 20 mg, 1, tablet, By Mouth, Daily, # 90 tablet, Refills 3, Tot. Refills 3, Maintenance, 03/28/21 11:31:00 EST, Route to Pharmacy Electronically, [facility]/pharmacy #[id number], 153, cm, 03/28/21 11:00:00 EST, Height Start Date: 03/28/21 Stop Date: 05/27/21 Status: Ordered hydrOXYzine hydrochloride 25 mg oral tablet 1 tablet = 25 mg, By Mouth, 3 times a day, PRN as needed for anxiety, PRN anxiety/panic attacks needs office visit, # 90 tablet, 1 Refills, Maintenance, 03/28/21 11:32:00 EST, Tablet, [facility]/pharmacy #[id number], 153, cm, 03/28/21 11:00:00 EST, Height Start Date: 03/28/21 Stop Date: 05/27/21 Status: Ordered Xulane 150 mcg-35 mcg/24 hr transdermal film, extended release 1 patch, Topically, Every week, APPLY 1 PATCH EVERY WEEK, # 3 each, 11 Refills, Maintenance, 03/28/21 11:33:00 EST, [id number], 1 patch Topically Every week,x21 days,Instr:APPLY [...]
--- OUTSIDE RECORDS SUMMARY | 2023-12-04 17:00 | XMS_ITS | Continuity of Care Document ---
Author Organization [facility] Address [address] [place] [address]- Care Team Providers Care Geospatial Extractor Analysis Name Role Phone Quincy SLATER, Karin Primary Care Physician [phone] [facility] [place] Date(s): 09/03/20 - 10/03/20 [facility] [address] [place] [address]- Attending Physician: Curtis Cerda Admitting Physician: Curtis Cerda Referring Physician: Curtis Cerda Allergies, Adverse Reactions, Alerts Substance Reaction Severity Status methadone-like opiates Activ e Immunizations Given and Recorded Vaccine Date Status Refusal Reason tetanus/diphtheria/pertussis, acel(Tdap) 03/23/08 Recorded Medications citalopram 20 mg oral tablet 20 mg, 1, tablet, By Mouth, Daily, # 30 tablet, Refills 5, Tot. Refills 5, Maintenance, 04/30/20 7:59:00 EST, Route to Pharmacy Electronically, [facility]/pharmacy #[id number], 153, cm, 04/30/20 7:35:00 EST, Height, 52.2, kg, 01/14/19 15:05:00 EDT, Dry Weight Start Date: 04/30/20 Stop Date: 10/27/20 Status: Ordered hydrOXYzine hydrochloride 25 mg oral tablet 1 tablet = 25 mg, By Mouth, 3 times a day, PRN as needed for anxiety, PRN anxiety/panic attacks needs office visit, # 90 tablet, 5 Refills, Maintenance, 05/01/20 9:52:00 EST, Tablet, [facility]/pharmacy #[id number], 153, cm, 04/30/20 7:35:00 EST, Height, 52.2, kg... Start Date: 05/01/20 Stop Date: 10/28/20 Status: Ordered LORazepam 0.5 mg oral tablet 1 tablet = 0.5 mg, By Mouth, 2 times a day, PRN as needed for anxiety, # 21 tablet, 1 Refills, Maintenance, 05/07/20 13:49:00 EST, Tablet, [facility]/pharmacy #[id number], Partial fill upon patient request if theprescription is for a schedule II opioid drug., 153... Start Date: 05/07/20 Status: Ordered Xulane 150 mcg-35 mcg/24 hr transdermal film, extended release 1 patch, Topically, Every week, APPLY 1 PATCH EVERY WEEK, # 3 each, 11 Refills, Maintenance, 01/14/19 15:47:54 EDT, [facility]/pharmacy #[id number] Start Date: 01/14/19 Stop Date: 09/23/19 Status: Ordered Problem List Condition Effective Dates Status Health Status Inform ant Generalized anxiety disorder with panic attacks(Confirmed) Active Shingles(Confirmed) Active Anxiety and depression(Confirmed) Active Seasonal allergies(Confirmed) Active Social History Social History Type Response Tobacco Other: quit Dec, or to this sporadic. Sex
--- OUTSIDE RECORDS SUMMARY | 2023-12-04 17:00 | XMS_ITS | Continuity of Care Document ---
Author Organization [facility] Address [address] [place] [address]- Care Team Providers Care Hse Manager Name Role Phone Angela SLATER, Felecia Gannon Primary Care Physician [phone] [place] [facility] [place]/22[place] 03/24/21 [facility] [address] [place] [address]- Attending Physician: Curtis Cerda Admitting Physician: AdmCurtis villanueva Referring Physician: AdmtrCurtis Allergies, Adverse Reactions, Alerts Substance Reaction Severity Status methadone-like opiates Activ e Immunizations Given and Recorded Vaccine Date Status Refusal Reason tetanus/diphtheria/pertussis, acel(Tdap) 03/23/08 Recorded Medications citalopram 20 mg oral tablet 20 mg, 1, tablet, By Mouth, Daily, # 30 tablet, Refills 1, Tot. Refills 1, Maintenance, 02/22/21 10:33:00 EST, Route to Pharmacy Electronically, [facility]/pharmacy #[id number], 153, cm, 05/21/20 15:58:00 EST, Height Start Date: 02/22/21 Stop Date: 04/23/21 Status: Ordered hydrOXYzine hydrochloride 25 mg oral tablet 1 tablet = 25 mg, By Mouth, 3 times a day, PRN as needed for anxiety, PRN anxiety/panic attacks needs office visit, # 90 tablet, 1 Refills, Maintenance, 02/22/21 10:33:00 EST, Tablet, [facility]/pharmacy #[id number], 153, cm, 05/21/20 15:58:00 EST, Height Start Date: 02/22/21 Stop Date: 04/23/21 Status: Ordered LORazepam 0.5 mg oral tablet 1 tablet = 0.5 mg, By Mouth, 2 times a day, PRN as needed for anxiety, # 21 tablet, 1 Refills, Maintenance, 05/07/20 13:49:00 EST, Tablet, [facility]/pharmacy #[id number], Partial fill upon patient request if theprescription is for a schedule II opioid drug., 153... Start Date: 05/07/20 Status: Ordered Xulane 150 mcg-35 mcg/24 hr transdermal film, extended release 1 patch, Topically, Every week, APPLY 1 PATCH EVERY WEEK, # 3 each, 11 Refills, Maintenance, 01/14/19 15:47:54 EDT, [facility]/pharmacy #[id number] Start Date: 01/14/19 Stop Date: 09/23/19 Status: Ordered Problem List Condition Effective Dates Status Health Status Inform ant Generalized anxiety disorder with panic attacks(Confirmed) Active Shingles(Confirmed) Active Anxiety and depression(Confirmed) Active Seasonal allergies(Confirmed) Active Social History Social History Type Response Tobacco Other: quit Dec, or to this sporadic. Sex
--- OUTSIDE RECORDS SUMMARY | 2023-12-04 17:00 | XMS_ITS | Continuity of Care Document ---
Author Organization [facility] Address [address] [place] [address]- Care Team Providers Care Financial Dealers Name Role Phone Quincy SLATER, Karin Primary Care Physician [id number] Date[facility]/30/[facility] - 05/07/20 [facility] [address] [place] [address]- Encounter Diagnosis Generalized anxiety disorder with panic attacks(Discharge Diagnosis) - 04/30/20 Adjustment disorder with anxiety(Discharge Diagnosis) - 04/30/20 Anxiety and depression(Discharge Diagnosis) - 04/30/20 Attending Physician: Karin Mathew NP Allergies, Adverse Reactions, Alerts Substance Reaction Severity Status methadone-like opiates Activ e Immunizations Given and Recorded Vaccine Date Status Refusal Reason tetanus/diphtheria/pertussis, acel(Tdap) 03/23/08 Recorded Medications citalopram 20 mg oral tablet 20 mg, 1, tablet, By Mouth, Daily, # 30 tablet, Refills 5, Tot. Refills 5, Maintenance, 04/30/20 7:59:00 EST, Route to [facility]acy [facility]ically, [id number], 153, cm, 04/30/20 7:35:00 EST, Height, 52.2, kg, 01/14/19 15:05:00 EDT, Dry Weight Start Date: 04/30/20 Stop Date: 10/27/20 Status: Ordered hydrOXYzine hydrochloride 25 mg oral tablet 1 tablet = 25 mg, By Mouth, 3 times a day, PRN as needed for anxiety, PRN anxiety/panic attacks needs office visit, # 90 tablet, 5 Refills, Maintenance, 05/01/20 9:52:00 EST, Tablet, [id number], 153, cm, 04/30/20 7:35:00 EST, Height, 52.2, kg... Start Date: 05/01/20 Stop Date: 10/28/20 Status: Ordered LORazepam 0.5 mg oral tablet 1 tablet = 0.5 mg, By Mouth, 2 times a day, PRN as needed for anxiety, # 21 tablet, 1 Refills, Maintenance, 05/07/20 13:49:00 EST, Tablet, [id number], Partial fill upon patient [...] Anxiety and depression(Confirmed) Active Seasonal allergies(Confirmed) Active Diagnosis Diagnosis Type Effective Dates Health Status Clinical Service Informant Generalized anxiety disorder with panic attacks Discharge Diagnosis 04/30/20 Adjustment disorder with anxiety Discharge Diagnosis 04/30/20 Anxiety and depression Discharge Diagnosis 04/30/20 Vital Signs Most recent to oldest [Reference Range]: 1 Height 153 cm (04/30/20 7:35 AM) Social History Social History Type Response Tobacco Other: quit Dec, or to this sporadic. Sex
--- OUTSIDE RECORDS SUMMARY | 2023-12-04 17:01 | XMS_ITS | Continuity of Care Document ---
Author Organization [facility] Address [address] [place] [address]- Care Team Providers Care Counter Manager Name Role Phone Quincy SLATER, Karin Primary Care Physician [phone] Encounter [facility] [place] Date(s): 04/27/20 - 05/27/20 [facility] [address] [place] [address]- Allergies, Adverse Reactions, Alerts Substance Reaction Severity Status methadone-like opiates Activ e Immunizations Given and Recorded Vaccine Date Status Refusal Reason tetanus/diphtheria/pertussis, acel(Tdap) 03/23/08 Recorded Medications citalopram 20 mg oral tablet 20 mg, 1, tablet, By Mouth, Daily, # 30 tablet, Refills 5, Tot. Refills 5, Maintenance, 04/30/20 7:59:00 EST, Route to Pharmacy Electronically, [facility]/pharmacy #[id number], 153, cm, 04/30/20 7:35:00 EST, Height, 52.2, kg, 01/14/19 15:05:00 EDT, Dry Weight Start Date: 04/30/20 Stop Date: 10/27/20 Status: Ordered hydrOXYzine hydrochloride 25 mg oral tablet 1 tablet = 25 mg, By Mouth, 3 times a day, PRN as needed for anxiety, PRN anxiety/panic attacks needs office visit, # 90 tablet, 5 Refills, Maintenance, 05/01/20 9:52:00 EST, Tablet, [facility]/pharmacy #[id number], 153, cm, 04/30/20 7:35:00 EST, Height, 52.2, kg... Start Date: 05/01/20 Stop Date: 10/28/20 Status: Ordered LORazepam 0.5 mg oral tablet 1 tablet = 0.5 mg, By Mouth, 2 times a day, PRN as needed for anxiety, # 21 tablet, 1 Refills, Maintenance, 05/07/20 13:49:00 EST, Tablet, [facility]/pharmacy #[id number], Partial fill upon patient request if theprescription [...]
--- OUTSIDE RECORDS SUMMARY | 2023-12-04 17:01 | XMS_ITS | Continuity of Care Document ---
Author Organization [facility] ter Address [address] [place] [address]- Care Team Providers Care Boot Maker Name Role Phone Angela SLATER, Felecia Gannon Primary Care Physician [phone] En[place] [facility] [place] Date(s): 05/03/21 - 07/08/[address] [address] Attending Physician: Felecia Miller NP Admitting Physician: [...] OF BREATH, # 6.7 each, 0 Refills, [id number], 153, cm, 03/28/21 11:00:00 EST, Height Start Date: 06/14/21 Status: Ordered citalopram 20 mg oral tablet 20 mg, 1, tablet, By Mouth, Daily, # 90 tablet, Refills 3, Tot. Refills 3, Maintenance, 03/28/21 11:31:00 EST, Route to Pharmacy Electronically, [facility]/pharmacy #[id number], 153, cm, 03/28/21 11:00:00 EST, Height Start Date: 03/28/21 Stop Date: 05/27/21 Status: Ordered hydrOXYzine hydrochloride 25 mg oral tablet 1 tablet = 25 mg, By Mouth, 3 times a day, PRN as needed for anxiety, PRN anxiety/panic attacks needs office visit, # 90 tablet, 1 Refills, Maintenance, 03/28/21 11:32:00 EST, Tablet, [id number], 153, cm, 03/28/21 11:00:00 EST, [...]
--- OUTSIDE RECORDS SUMMARY | 2023-12-04 17:01 | XMS_ITS | Continuity of Care Document ---
Author Organization [facility] Address [address] [place] [address]- Care Team Providers Care Corporate Account Executive Name Role Phone Ken Milan DO Primary Care Physician [phone] Encounter [facility] [place] Date(s): 08/14/22 - 09/13/22 [facility] [address] [place] [address]- Allergies, Adverse Reactions, Alerts Substance Reaction Severity Status methadone-like opiates Activ e Immunizations Given and Recorded Vaccine Date Status Refusal Reason tetanus/diphtheria/pertussis, acel(Tdap) 03/23/08 Recorded Medications citalopram 20 mg oral tablet 1 tablet, [...] Mouth, Daily, PRN as needed for anxiety, for 30 days, # 7 tablet, 0 Refills, Hard Stop 09/14/22 7:31:00 EDT, 08/15/22 7:31:00 EDT, Tablet, [id number], Partial fill upon patient request if the prescription is for a schedul... Start Date: 08/15/22 Stop Date: 09/14/22 Status: Ordered LORazepam 0.5 mg oral tablet 1 tablet = 0.5 mg, By Mouth, Daily, PRN as needed for anxiety, # 7 tablet, 0 Refills, Maintenance, 09/14/22 7:31:00 EDT, Tablet, [id number], Partial fill upon patient request if the prescription is for a schedule II opioid drug., 153, cm, 03/25... Start Date: 09/14/22 Stop Date: 10/14/22 Status: Ordered Xulane 150 mcg-35 mcg/24 hr transdermal film, extended release See Instructions, APPLY 1 PATCH TOPICALLY EVERY WEEK FOR 21 DAYS, APPLY 1 PATCH EVERY WEEK, # 9 patch, 3 Refills, Maintenance, 07/08/22 13:25:00 EDT, [id number], 84, APPLY 1 PATCH TOPICALLY EVERY WEEK [...] quit Dec, or to this sporadic. Sex Patient Care team information Care Team Personnel Name: Ken Milan DO Position: S Physician - Primary Care Member Role: PCP Address: Address: [address] [place] [address]- Care Team Related Persons Name: SUAD PARKER Name: GUERO DYKES Address: home [address] [place] [address] Name: MYRA HOSKINS Address: home [address] [place] [address]
--- OUTSIDE RECORDS SUMMARY | 2023-12-04 17:01 | XMS_ITS | Continuity of Care Document ---
Author Organization [facility] Address [address] [place] [address]- Care Team Providers Care Mud Mixer Name Role Phone Ken Milan DO Primary Care Physician [phone] [place] [facility] [place] 03/26/22 - 04/25/22 [facility] [address] [place] [address]- Allergies, Adverse Reactions, Alerts Substance Reaction Severity [...] visit, # 90 tablet, 1 Refills, Maintenance, 01/06/22 18:57:00 EDT, Tablet, [id number], 153, cm, 09/03/21 15:32:00 EDT, Height Start Date: 01/06/22 Stop Date: 03/07/22 Status: Ordered LORazepam 0.5 mg oral tablet 1 tablet = 0.5 mg, By Mouth, 2 times a day, PRN as needed for anxiety, # 10 tablet, 0 Refills, Maintenance, 01/06/22 18:57:00 EDT, Tablet, [id number], Partial fill upon patient request if theprescription is for a schedule II opioid drug., 153... Start Date: 01/06/22 Status: Ordered Problem List Condition Confirmation Course [...] Team Personnel Name: Ken Milan DO Position: [facility] Primary Care Physician Member Role: PCP Address: Address: [address] [place] [address]- Care Team Related Persons Name: SUAD PARKER Name: GUERO DYKES Address: home [address] [place] [address] Name: MYRA HOSKINS Address: home [address] [place] [address]
--- OUTSIDE RECORDS SUMMARY | 2023-12-04 17:01 | XMS_ITS | Continuity of Care Document ---
Author Organization [facility] Address [address] [place] [address]- Care Team Providers Care Makeup Instructor Name Role Phone Angela SLATER, Felecia Gannon Primary Care Physician [phone] [place] [facility] [place] 09/10/21 [facility] [address] [place] [address]- Encounter Diagnosis Itch of skin(Discharge Diagnosis) - 09/03/21 Attending Physician: Kaycee Ellison NP Allergies, Adverse Reactions, Alerts Substance Reaction [...] 03/28/21 11:31:00 EST, Route to Pharmacy Electronically, [facility]/pharmacy #[id number], 153, cm, 03/28/21 11:00:00 EST, Height Start Date: 03/28/21 Stop Date: 05/27/21 Status: Ordered hydrOXYzine hydrochloride 25 mg oral tablet 1 tablet = 25 mg, By Mouth, 3 times a day, PRN as needed for anxiety, PRN anxiety/panic attacks needs office visit, # 90 tablet, 1 Refills, Maintenance, 03/28/21 11:32:00 EST, Tablet, [facility]/pharmacy #[id number], 153, cm, 03/28/21 11:00:00 EST, Height Start Date: 03/28/21 Stop Date: 05/27/21 Status: Ordered Xulane 150 mcg-35 mcg/24 hr transdermal film, extended release 1 patch, Topically, Every week, APPLY 1 PATCH EVERY WEEK, # 3 each, 11 Refills, Maintenance, 03/28/21 11:33:00 EST, [facility]/pharmacy #[id number], 1 patch Topically Every week,x21 days,Instr:APPLY 1 PATCH EVERYWEEK, 153, cm, 03/28/21 11:00:00 EST, Height Start Date: 03/28/21 Stop Date: 12/05/21 Status: Ordered Problem List Condition Effective Dates Status Health Status Inform ant Generalized anxiety disorder with panic attacks(Confirmed) Active Shingles(Confirmed) Active Anxiety and depression(Confirmed) Active 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) Active Seasonal allergies(Confirmed) Active Diagnosis Diagnosis Type Effective Dates Health Status Cl inical Service Informant Itch of skin Discharge Diagnosis 09/03/21 Vital Signs Most recent to oldest [Reference Range]: 1 Height 153 cm (09/03/21 3:32 PM) Weight 49.8 kg (09/03/21 3:32 PM) Oxygen Saturation [94-100 %] 97 % (09/03/21 3:32 PM) Pulse Rate [55-90 bpm] 85 bpm (09/03/21 3:32 PM) Body Mass Index [18.5-24.99] 21.27 (09/03/21 3:32 PM) Blood Pressure [90-138/55-84 mm Hg] 102/ 59mm Hg (09/03/21 3:32 PM) Respiratory Rate [16-30 br/min] 18 br/mi n (09/03/21 3:32 PM) Blood pressure sites Arm, right (09/03/21 3:32 PM) Weight Obtained Via Standing scale (09/03/21 3:32 PM) Social History Social History Type Response Tobacco Other: quit Oct, apolinar or to this sporadic. Sex
--- OUTSIDE RECORDS SUMMARY | 2023-12-04 17:01 | XMS_ITS | Continuity of Care Document ---
Author Organization [facility] Address [address] [place] [address]- Care Team Providers Care Metal Bonding Crib Attendant Name Role Phone Angela SLATER, Felecia Gannon Primary Care Physician [id number] Date(s[facility] 02/21/21 - 03/24/21 [facility] [address] [place] [address]- Attending Physician: Rimma Sims MD Referring Physician: Quincy SLATER, Karin Allergies, Adverse Reactions, Alerts Substance Reaction Severity Status methadone-like opiates Activ e Immunizations Given and Recorded Vaccine Date Status Refusal Reason tetanus/diphtheria/pertussis, acel(Tdap) 03/23/08 Recorded Medications citalopram 20 mg oral tablet 20 mg, 1, tablet, By Mouth, Daily, # 30 tablet, Refills 1, Tot. Refills 1, Maintenance, 02/22/21 10:33:00 EST, Route to Pharmacy Electronically, [facility]/pharmacy #[id number], 153, cm, 05/21/20 15:58:00 EST, Height Start Date: 02/22/21 Stop Date: 04/23/21 Status: Ordered hydrOXYzine hydrochloride 25 mg oral tablet 1 tablet = 25 mg, By Mouth, 3 times a day, PRN as needed for anxiety, PRN anxiety/panic attacks needs office visit, # 90 tablet, 1 Refills, Maintenance, 02/22/21 10:33:00 EST, Tablet, [facility]/pharmacy #[id number], 153, cm, 05/21/20 15:58:00 EST, Height Start Date: 02/22/21 Stop Date: 04/23/21 Status: Ordered LORazepam 0.5 mg oral tablet 1 tablet = 0.5 mg, By Mouth, 2 times a day, PRN as needed for anxiety, # 21 tablet, 1 Refills, Maintenance, 05/07/20 13:49:00 EST, Tablet, [facility]/pharmacy #[id number], Partial fill upon patient request if theprescription is for a schedule II opioid drug., 153... Start Date: 05/07/20 Status: Ordered Xulane 150 mcg-35 mcg/24 hr transdermal film, extended release 1 patch, Topically, Every week, APPLY 1 PATCH EVERY WEEK, # 3 each, 11 Refills, Maintenance, 01/14/19 15:47:54 EDT, [facility]/pharmacy #[id number] Start Date: 01/14/19 Stop Date: 09/23/19 Status: Ordered Problem List Condition Effective Dates Status Health Status Inform ant Generalized anxiety disorder with panic attacks(Confirmed) Active Shingles(Confirmed) Active Anxiety and depression(Confirmed) Active Seasonal allergies(Confirmed) Active Social History Social History Type Response Tobacco Other: quit Dec, or to this sporadic. Sex
--- OUTSIDE RECORDS SUMMARY | 2023-12-04 17:01 | XMS_ITS | Continuity of Care Document ---
Author Organization [facility] Address [address] [place] [address]- Care Team Providers Care Personnel Officer Name Role Phone Bjorn Ken Primary Care Physician [place] [facility] [place]/22 - 01/02/23 [facility] [address] [place] [address]- Attending Physician: Steffany Pan NP Allergies, Adverse Reactions, Alerts Substance Reaction Severity Status methadone-like opiates Janet e Immunizations Given and Recorded Vaccine Date Status Refusal Reason tetanus/diphtheria/pertussis, acel(Tdap) 03/23/08 Recorded Medications citalopram 10 mg oral tablet 1 tablet, By Mouth, Daily, TD: 30MG), # 90 tablet, 1 Refills, Maintenance, 12/20/22 12:36:00 EDT, [id number], 153, cm, 10/02/22 9:17:00 EDT, Height Start Date: 12/20/22 Status: Ordered hydrOXYzine hydrochloride 25 mg oral tablet 1 tablet, By Mouth, 3 times a day, PRN NEEDED, ANXIETY/PANIC ATTACKS NEEDS OFFICE VISIT., # 270 tablet, 0 Refills, Maintenance, 12/22/22 10:22:00 EDT, [id number], 153, cm, 10/02/22 9:17:00 EDT, Height Start Date: 12/22/22 Status: Ordered LORazepam 0.5 mg oral tablet 1 tablet = 0.5 mg, By Mouth, Daily, PRN as needed for anxiety, Do not use daily, # 7 tablet, 0 Refills, Maintenance, 10/21/22 16:11:00 EDT, Tablet, [id number], Partial fill upon patient request if the prescription is for a schedule II opioid d... Start Date: 10/21/22 Stop Date: 11/20/22 Status: Ordered Xulane 150 mcg-35 mcg/24 hr transdermal film, extended release See Instructions, APPLY 1 PATCH TOPICALLY EVERY WEEK FOR 21 DAYS, APPLY 1 PATCH EVERY WEEK, # 9 patch, 3 Refills, Maintenance, 07/08/22 13:25:00 EDT, [facility] [id number], 84, APPLY 1 PATCH TOPICALLY EVERY WEEK [...] Team Personnel Name: Ken Milan DO Position: [facility] Physician - Primary Care Member Role: PCP Address: Address: [address] [place] [address]- [place] Care Team Related Persons Name: SUAD PARKER Name: GUERO DYKES Address: [address] [place] [address] Name: MYRA HOSKINS Address: home [address] [place] [address]
--- OUTSIDE RECORDS SUMMARY | 2023-12-04 17:01 | XMS_ITS | Continuity of Care Document ---
Author Organization [facility] Address [address] [place] [address]- Care Team Providers Care Small Brake Form Operator Name Role Phone Felecia Miller NP Primary Care Physician [place] [facility] [place] 03/05/22 - 04/04/22 [facility] [address] [place] [address]- Allergies, Adverse Reactions, Alerts Substance Reaction Severity Status methadone-like opiates Activ e Immunizations Given and Recorded Vaccine Date Status Refusal Reason tetanus/diphtheria/pertussis, acel(Tdap) 03/23/08 Recorded Medications Albuterol (Eqv-Proventil HFA) 90 mcg/inh inhalation aerosol See Instructions, INHALE 2 PUFFS BY MOUTH EVERY 6 HOURS X14 DAYS NEEDED WHEEZING/SHORTNESS OF BREATH, # 6.7 each, 0 Refills, 01/06/22 18:57:00 EDT, [id number], 153, cm, 09/03/21 15:32:00 EDT, Height Start Date: 01/06/22 Status: Ordered cetirizine 10 mg oral tablet [...] 1 Refills, Maintenance, 01/06/22 18:57:00 EDT, Tablet, [facility]/pharmacy #[id number], 153, cm, 09/03/21 15:32:00 EDT, Height Start Date: 01/06/22 Stop Date: 03/07/22 Status: Ordered LORazepam 0.5 mg oral tablet 1 tablet = 0.5 mg, By Mouth, 2 times a day, PRN as needed for anxiety, # 10 tablet, 0 Refills, Maintenance, 01/06/22 18:57:00 EDT, Tablet, [facility]/pharmacy #[id number], Partial fill upon patient request if theprescription is for a schedule II opioid drug., 153... Start Date: 01/06/22 Status: Ordered LORazepam 0.5 mg oral tablet 1 tablet = 0.5 mg, By Mouth, Daily, PRN as needed for anxiety, schedule office appt for mood management, # 7 tablet, 0 Refills, Maintenance, 03/06/22 15:47:00 EST, Tablet, [facility]/pharmacy #[id number], Partialfill upon patient request if the prescription is fo... Start Date: 03/06/22 Stop Date: 04/05/22 Status: Ordered Wellbutrin SR 150 mg/12 hours oral tablet, extended release 1 tablet = 150 mg, By Mouth, Daily, After 14 days, start Buproprion 150mg XL, # 14 tablet, 0 Refills, Maintenance, 03/20/22 15:59:00 EST, [facility]/pharmacy #[id number], Partial fill upon patient request if the prescription is for a schedule II opioid drug., 153,... Start Date: 03/20/22 Stop Date: 04/03/22 Status: Ordered Wellbutrin XL 150 mg/24 hours oral tablet, extended release 1 tablet = 150 mg, By Mouth, Every 24 hours, Start after completing 14-day course of Bupropion 150mg SR, # 30 tablet, 0 Refills, Maintenance, 03/20/22 15:59:00 EST, [id number], Partial fill upon patient request if the prescription is for a donovan... Start Date: 03/20/22 Status: Ordered Xulane 150 mcg-35 mcg/24 hr transdermal film, extended release 1 patch, Topically, Every week, APPLY 1 PATCH EVERY WEEK, # 3 each, 11 Refills, Maintenance, 03/28/21 11:33:00 EST, [id number], 1 patch Topically Every week,x21 days,Instr:APPLY 1 PATCH EVERYWEEK, 153, cm, 03/28/21 11:00:00 EST, Height Start Date: 03/28/21 Stop Date: 12/05/21 Status: Ordered Problem List Condition Confirmation Course [...] Care team information Care Team Personnel Name: Felecia Miller NP Position: [facility] Associate Professional Member Role: PCP Address: Address: [address] [place] [address] [place] [address]- Care Team Related Persons Name: SUAD PARKER Name: GUERO DYKES Address: [address] [place] [address] Name: MYRA HOSKINS Address: [address] [place] [address]
--- OUTSIDE RECORDS SUMMARY | 2023-12-04 17:01 | XMS_ITS | Continuity of Care Document ---
Author Organization [facility] Address [address] [place] [address]- Care Team Providers Care Manufacturing Accountant Name Role Phone Quincy SLATER, Karin Primary Care Physician [place] [facility] [place] 05/26/20 [facility] [address] [place] [address]- Allergies, Adverse Reactions, Alerts Substance Reaction Severity Status methadone-like opiates Activ e Immunizations Given and Recorded Vaccine Date Status Refusal Reason tetanus/diphtheria/pertussis, acel(Tdap) 03/23/08 Recorded Medications citalopram 20 mg oral tablet 20 mg, 1, tablet, By Mouth, Daily, # 30 tablet, Refills 5, Tot. Refills 5, Maintenance, 04/30/20 7:59:00 EST, Route to Pharmacy Electronically, [facility]/pharmacy #[id number], 153, cm, 04/30/20 7:35:00 EST, Height, 52.2, kg, 01/14/19 15:05:00 EDT, Dry Weight Start Date: 04/30/20 Stop Date: 10/27/20 Status: Ordered hydrOXYzine hydrochloride 25 mg oral tablet 1 tablet = 25 mg, By Mouth, 3 times a day, PRN as needed for anxiety, PRN anxiety/panic attacks needs office visit, # 90 tablet, 5 Refills, Maintenance, 05/01/20 9:52:00 EST, Tablet, [facility]/pharmacy #[id number], 153, cm, 04/30/20 7:35:00 EST, Height, 52.2, kg... Start Date: 05/01/20 Stop Date: 10/28/20 Status: Ordered LORazepam 0.5 mg oral tablet 1 tablet = 0.5 mg, By Mouth, 2 times a day, PRN as needed for anxiety, # 21 tablet, 1 Refills, Maintenance, 05/07/20 13:49:00 EST, Tablet, [facility]/pharmacy #[id number], Partial fill upon patient request if theprescription [...]
--- OUTSIDE RECORDS SUMMARY | 2023-12-04 17:01 | XMS_ITS | Continuity of Care Document ---
Author Organization [facility] Address [address] [place] [address] Dr [address] [place] [address]- Care Team Providers Care Board Certified Behavioral Analyst Name Role Phone Ken Milan DO Primary Care Physician [phone] [facility] [place] Date(s): 04/29/22 - 05/06/22 [facility] [address] [place], [place] [address] Attending Physician: Jerry Purdy MD Referring Physician: Liang SLATER, Dileep Negron Allergies, Adverse Reactions, Alerts Substance Reaction Severity [...] Team Personnel Name: Ken Milan DO Position: [facility] Primary Care Physician Member Role: PCP Address: Address: [address] [place] [phone]- Care Team Related Persons Name: SUAD PARKER Name: GUERO DYKES Address: [address] [place] [address] Name: MYRA HOSKINS Address: home [address] [place] [address]
--- OUTSIDE RECORDS SUMMARY | 2023-12-04 17:01 | XMS_ITS | Continuity of Care Document ---
Author Organization [facility] Address [address] [place] [address]- Care Team Providers Care Thread Milling Machine Set Up Operator Name Role Phone Quincy SLATER, Karin Primary Care Physician [id number] Date[facility] 05/21/20 - 05/28/20 [facility] [address] [place] [address]- Encounter Diagnosis Generalized anxiety disorder with panic attacks(Discharge Diagnosis) - 05/21/20 Attending Physician: Karin Mathew NP Allergies, Adverse Reactions, Alerts Substance Reaction Severity Status methadone-like opiates Activ e Immunizations Given and Recorded Vaccine Date Status Refusal Reason tetanus/diphtheria/pertussis, acel(Tdap) 03/23/08 Recorded Medications citalopram 20 mg oral tablet 20 mg, 1, tablet, By Mouth, Daily, # 30 tablet, Refills 5, Tot. Refills 5, Maintenance, 04/30/20 7:59:00 EST, Route to Pharmacy Electronically, [facility]/pharmacy #[id number], 153, cm, 04/30/20 7:35:00 EST, Height, [...] Refills, Maintenance, 05/07/20 13:49:00 EST, Tablet, [id number], Partial fill upon patient request if theprescription [...] anxiety disorder with panic attacks Discharge Diagnosis 05/21/20 Vital Signs Most recent to oldest [Reference Range]: 1 Height 153 cm (05/21/20 3:58 PM) Social History Social History Type Response Tobacco Other: quit Dec, or to this sporadic. Sex
--- OUTSIDE RECORDS SUMMARY | 2023-12-04 17:01 | XMS_ITS | Continuity of Care Document ---
Author Organization [facility] Address [address] [place] [address]- Care Team Providers Care Criminal Justice Faculty Name Role Phone Quincy SLATER, Karin Primary Care Physician En[place] [facility] [place]s): 08/17/19 - 08/24/19 [facility] [address] [place] [address]- [place] Encounter Diagnosis Dermatitis(Discharge Diagnosis) - 08/17/19 Anxiety and depression(Discharge Diagnosis) - 08/17/19 Attending Physician: Devon Styles MD Allergies, Adverse Reactions, Alerts Substance Reaction Severity Status methadone-like opiates Activ e Immunizations Given and Recorded Vaccine Date Status Refusal Reason tetanus/diphtheria/pertussis, acel(Tdap) 03/23/08 Recorded Medications citalopram 20 mg oral tablet 20 mg, 1, tablet, By Mouth, Daily, # 30 tablet, Refills 5, Tot. Refills 5, Maintenance, 08/17/19 8:18:00 EDT, Route to Pharmacy Electronically, [facility]/pharmacy #[id number], 153, cm, 08/17/19 7:55:00 EDT, Height, 52.2, kg, 01/14/19 15:05:00 EDT, Dry Weight Start Date: 08/17/19 Status: Ordered hydrOXYzine hydrochloride 25 mg oral tablet 1 tablet = 25 mg, By Mouth, 3 times a day, PRN as needed for anxiety, PRN anxiety/panic attacks needs office visit, # 90 tablet, 5 Refills, Maintenance, 08/17/19 8:18:00 EDT, Tablet, [facility]/pharmacy #[id number], 153, cm, 08/17/19 7:55:00 EDT, Height, 52.2, kg... Start Date: 08/17/19 Stop Date: 02/13/20 Status: Ordered triamcinolone 0.1% topical cream 1 application, Topically, 2 times a day, for 14 days, apply a thin film to affected area, # 60 Gm, 1 Refills, Acute 09/14/19 8:19:00 EDT, 08/17/19 8:19:00 EDT, Cream, [facility]/pharmacy #[id number], 1 application Topically 2 times a day,x14 days,Instr:apply a th... Start Date: 08/17/19 Stop Date: 09/14/19 Status: Ordered Xulane 150 mcg-35 mcg/24 hr [...] Effective Dates Health Status Clinical Service Informant Anxiety and depression Discharge Diagnosis 08/17/19 Dermatitis Discharge Diagnosis 08/17/19 Vital Signs Most recent to oldest [Reference Range]: 1 Height 153 cm (08/17/19 7:55 AM) Social History Social History Type Response Tobacco Other: quit Dec, or to this sporadic. Sex
--- OUTSIDE RECORDS SUMMARY | 2023-12-04 17:01 | XMS_ITS | Continuity of Care Document ---
Author Organization [facility] Address [address] [place] [address]- Care Team Providers Care Column Precaster Name Role Phone Felecia Miller NP Primary Care Physician [place] [facility] [place] 08/26/21 - 09/25/21 [facility] [address] [place] [address]- Attending Physician: Kaycee Ellison NP Referring Physician: Felecia Miller NP Allergies, [...] 11:31:00 EST, Route to Pharmacy Electronically, [facility]/pharmacy #[id number], 153, cm, 03/28/21 11:00:00 EST, Height Start Date: 03/28/21 Stop Date: 05/27/21 Status: Ordered hydrOXYzine hydrochloride 25 mg oral tablet 1 tablet = 25 mg, By Mouth, 3 times a day, PRN as needed for anxiety, PRN anxiety/panic attacks needs office visit, # 90 tablet, 1 Refills, Maintenance, 03/28/21 11:32:00 EST, Tablet, [facility]/pharmacy #[id number], 153, cm, 03/28/21 11:00:00 EST, Height Start Date: 03/28/21 Stop Date: 05/27/21 Status: Ordered Xulane 150 mcg-35 mcg/24 hr transdermal film, extended release 1 patch, Topically, Every week, APPLY 1 PATCH EVERY WEEK, # 3 each, 11 Refills, Maintenance, 03/28/21 11:33:00 EST, [facility]/pharmacy #[id number], 1 patch Topically Every [...]
--- OUTSIDE RECORDS SUMMARY | 2023-12-04 17:01 | XMS_ITS | Continuity of Care Document ---
Author Organization [facility] Address [address] [place] [address]- Care Team Providers Care Teacher'S Aide Name Role Phone Angela SLATER, Felecia Gannon Primary Care Physician En[place] [facility] [place] Date(s): 08/12/21 - 09/11/21 [facility] [address] [place] [address]- Allergies, Adverse Reactions, Alerts Substance Reaction Severity [...] a schedule II opioid drug., 153, cm, 2... Start Date: 09/03/21 Status: Ordered citalopram 20 mg oral tablet 20 mg, 1, tablet, By Mouth, Daily, # 90 tablet, Refills 3, Tot. Refills 3, Maintenance, 03/28/21 11:31:00 EST, Route to Pharmacy Electronically, [facility]/pharmacy #[id number], 153, cm, 03/28/21 11:00:00 EST, Height Start Date: 03/28/21 Stop Date: 05/27/21 Status: Ordered hydrOXYzine hydrochloride 25 mg oral tablet 1 tablet = 25 mg, By Mouth, 3 times a day, PRN as needed for anxiety, PRN anxiety/panic attacks needs office visit, # 90 tablet, 1 Refills, Maintenance, 03/28/21 11:32:00 EST, Tablet, [facility]/pharmacy #[id number], 153, cm, 03/28/21 11:00:00 EST, Height Start Date: 03/28/21 Stop Date: 05/27/21 Status: Ordered Xulane 150 mcg-35 mcg/24 hr transdermal film, extended release 1 patch, Topically, Every week, APPLY 1 PATCH EVERY WEEK, # 3 each, 11 Refills, Maintenance, 03/28/21 11:33:00 EST, [facility]/pharmacy #[id number], 1 patch Topically Every [...]
--- OUTSIDE RECORDS SUMMARY | 2023-12-04 17:01 | XMS_ITS | Continuity of Care Document ---
Author Organization [facility] Address [address] [place] [address]- Care Team Providers Care Fixed Wing Aircraft Flight Mechanic Name Role Phone Ken Milan DO Primary Care Physician [id number] Date(s): 12/05/22 - 01/07/23 [facility] [address] [place] [address]- Attending Physician: Not on Staff, Attending MD Allergies, Adverse Reactions, Alerts Substance Reaction Severity Status methadone-like opiates Activ e Immunizations Given and Recorded Vaccine Date Status Refusal Reason tetanus/diphtheria/pertussis, acel(Tdap) 03/23/08 Recorded Medications citalopram 10 mg oral tablet 1 tablet, By Mouth, Daily, TD: 30MG), # 90 tablet, 1 Refills, Maintenance, 12/20/22 12:36:00 EDT, [id number], 153, cm, 10/02/22 9:17:00 EDT, Height Start Date: 12/20/22 Status: Ordered hydrOXYzine hydrochloride 25 mg oral tablet 1 tablet, By Mouth, 3 times a day, PRN NEEDED, ANXIETY/PANIC ATTACKS NEEDS OFFICE VISIT., # 270 tablet, 0 Refills, Maintenance, 12/22/22 10:22:00 EDT, [id number], 153, cm, 10/02/22 9:17:00 EDT, Height Start Date: 12/22/22 Status: Ordered LORazepam 0.5 mg oral tablet 1 tablet = 0.5 mg, By Mouth, Daily, PRN as needed for anxiety, Do not use daily, # 7 tablet, 0 Refills, Maintenance, 10/21/22 16:11:00 EDT, Tablet, [id number], Partial fill upon patient request if the prescription is for a schedule II opioid d... Start Date: 10/21/22 Stop Date: 11/20/22 Status: Ordered Xulane 150 mcg-35 mcg/24 hr transdermal film, extended release See Instructions, APPLY 1 PATCH TOPICALLY EVERY WEEK FOR 21 DAYS, APPLY 1 PATCH EVERY WEEK, # 9 patch, 3 Refills, Maintenance, 07/08/22 13:25:00 EDT, [id number], 84, APPLY 1 PATCH TOPICALLY EVERY WEEK [...] Team Personnel Name: Ken Milan DO Position: [facility] Physician - Primary Care Member Role: PCP Address: Address: [address] [place] [address]- [place] Care Team Related Persons Name: SUAD PARKER Name: GUERO DYKES Address: home [address] [place] [address] Name: MYRA HOSKINS Address: home [address] [place] [address]
--- OUTSIDE RECORDS SUMMARY | 2023-12-04 17:01 | XMS_ITS | Continuity of Care Document ---
Author Organization [facility] Address [address] [place] [address]- Care Team Providers Care Sap Hana Developer Name Role Phone Ken Milan DO Primary Care Physician En[place] [facility] [place] Date(s): 03/31/23 - 04/30/23 [facility] [address] [place] [address]- Allergies, Adverse Reactions, Alerts Substance Reaction Severity Status methadone-like opiates Activ e Immunizations Given and Recorded Vaccine Date Status Refusal Reason SARS-CoV-2 (COVID-19) mRNA BNT-162b2 vac 12/27/20 Recorded SARS-CoV-2 (COVID-19) mRNA BNT-162b2 vac 12/06/20 Recorded Measles/Mumps/Rubella Virus Vaccine 08/08/10 Recor ded tetanus/diphtheria/pertussis, acel(Tdap) 03/23/08 Recorded Medications citalopram 40 mg oral tablet 40 mg, 1, tablet, By Mouth, Daily, # 90 tablet, Refills 3, Tot. Refills 3, Maintenance, 01/13/23 10:32:00 EDT, Route to Pharmacy Electronically, [facility]/pharmacy #[id number], Partial fill upon patient request if the prescription is for a schedule II opioid drug... Start Date: 01/13/23 Status: Ordered hydrOXYzine hydrochloride 25 mg oral tablet 1 tablet, By Mouth, 3 times a day, PRN NEEDED, ANXIETY/PANIC ATTACKS NEEDS OFFICE VISIT., # 270 tablet, 0 Refills, Maintenance, 12/22/22 10:22:00 EDT, [id number], 153, cm, 10/02/22 9:17:00 EDT, Height Start Date: 12/22/22 Status: Ordered LORazepam 0.5 mg oral tablet 1 tablet = 0.5 mg, By Mouth, Daily, PRN as needed for anxiety, Do not use daily, # 7 tablet, 0 Refills, Maintenance, 10/21/22 16:11:00 EDT, Tablet, [facility]/pharmacy #[id number], Partial fill upon patient request if the prescription is for a schedule II opioid d... Start Date: 10/21/22 Stop Date: 11/20/22 Status: Ordered Xulane 150 mcg-35 mcg/24 hr transdermal film, extended release See Instructions, APPLY 1 PATCH TOPICALLY EVERY WEEK FOR 21 DAYS, APPLY 1 PATCH EVERY WEEK, # 9 patch, 3 Refills, Maintenance, 07/08/22 13:25:00 EDT, [id number], 84, APPLY 1 PATCH TOPICALLY EVERY WEEK [...] Team Personnel Name: Ken Milan DO Position: [facility] Physician - Primary Care Member Role: PCP Address: Address: [address] [place] [address]- [place] Care Team Related Persons Name: SUAD PARKER Name: GUERO DYKES Address: home [address] [place] [address] Name: MYRA HOSKINS Address: home [address] [place] [address]
--- OUTSIDE RECORDS SUMMARY | 2023-12-04 17:01 | XMS_ITS | Continuity of Care Document ---
Author Organization [facility] Address [address] [place] [address]- Care Team Providers Care Editor Name Role Phone Angela SLATER, Felecia Darling Primary Care Physician Encounter [facility] Date(s): 11/27/21 - 12/27/21 [facility] [address] [place] [address]- Allergies, Adverse Reactions, Alerts Substance Reaction Severity [...] tablet, By Mouth, Daily, # 90 tablet, 0 Refills, Maintenance, 11/12/21 9:37:00 EDT, [id number], Office visit needed for further refills., 153, cm, 09/03/21 15:32:00 EDT, Height Start Date: 11/12/21 Status: Ordered hydrOXYzine hydrochloride 25 mg oral tablet 1 tablet = 25 mg, By Mouth, 3 times a day, PRN as needed for anxiety, PRN anxiety/panic attacks needs office visit, # 90 tablet, 1 Refills, Maintenance, 03/28/21 11:32:00 EST, Tablet, [id number], 153, cm, 03/28/21 11:00:00 EST, Height Start Date: 03/28/21 Stop Date: 05/27/21 Status: Ordered LORazepam 0.5 mg oral tablet 1 tablet = 0.5 mg, By Mouth, 2 times a day, PRN as needed for anxiety, # 10 tablet, 0 Refills, Maintenance, 11/14/21 17:07:00 EDT, Tablet, [id number], Partial fill upon patient request if theprescription is for a schedule II opioid drug., 153... Start Date: 11/14/21 Status: Ordered Xulane 150 mcg-35 mcg/24 hr [...] this sporadic. Sex Patient Care team information Personnel Name: Felecia Miller NP Address: Address: [address] [place] [address] [place], [place] [address]
--- OUTSIDE RECORDS SUMMARY | 2023-12-04 17:01 | XMS_ITS | Continuity of Care Document ---
Author Organization [facility] Address [address] [place] [address]- Care Team Providers Care Change Management Name Role Phone Quincy SLATER, Karin Primary Care Physician Encounter [facility] Date(s): 05/01/20 - 05/31/20 [facility] [address] [place] [address]- Encounter Diagnosis Anxiety and depression(Discharge Diagnosis) - 05/01/20 Allergies, Adverse Reactions, Alerts Substance Reaction Severity [...] 1 Refills, Maintenance, 05/07/20 13:49:00 EST, Tablet, [facility]/pharmacy #[id number], Partial fill upon patient request if theprescription [...] Service Informant Anxiety and depression Discharge Diagnosis 05/01/20 Social History Social History Type Response Tobacco Other: quit Dec, or to this sporadic. Sex
--- OUTSIDE RECORDS SUMMARY | 2023-12-04 17:01 | XMS_ITS | Continuity of Care Document ---
Author Organization [facility] Address [address] [place] [address]- Care Team Providers Care Auto Servicer Name Role Phone Ken Milan DO Primary Care Physician Encounter [facility] Date(s): 03/24/23 - 04/23/23 [facility] [address] [place] [address]- Attending Physician: Curtis Cerda Admitting Physician: Curtis [...] 01/13/23 10:32:00 EDT, Route to Pharmacy Electronically, [facility]/pharmacy #[id number], Partial fill upon patient request if the prescription is for a schedule II opioid drug... Start Date: 01/13/23 Status: Ordered hydrOXYzine hydrochloride 25 mg oral tablet 1 tablet, By Mouth, 3 times a day, PRN NEEDED, ANXIETY/PANIC ATTACKS NEEDS OFFICE VISIT., # 270 tablet, 0 Refills, Maintenance, 12/22/22 10:22:00 EDT, [id number], 153, cm, 10/02/22 9:17:00 EDT, Height Start [...] patch, 3 Refills, Maintenance, 07/08/22 13:25:00 EDT, [id number], 84, APPLY 1 PATCH TOPICALLY EVERY WEEK [...] Team Personnel Name: Ken Milan DO Position: [facility] Physician - Primary Care Member Role: PCP Address: Address: [address] [place] [address]- Care Team Related Persons Name: SUAD PARKER Name: GUERO DYKES Address: home [address] [place] [address] Name: MYRA HOSKINS Address: home [address] [place] [address]
--- OUTSIDE RECORDS SUMMARY | 2023-12-04 17:01 | XMS_ITS | Continuity of Care Document ---
Author Organization [facility] Address [address] [place] [address]- Care Team Providers Care Map Compiler Name Role Phone Bjorn MUÑOZ Ken Primary Care Physician Encounter [facility] Date(s): 11/04/22 - 12/19/[address] [address]- Attending Physician: Carri Irizarry NP Admitting Physician: [...] Replace Required Details, Route to Pharmacy Electronically, [facility]/pharmacy #[id number], Partial... Start Date: 10/02/22 Status: Ordered citalopram 20 mg oral tablet See Instructions, TAKE 1 TABLET BY MOUTH EVERY DAY, # 90 tablet, 1 Refills, Maintenance, 12/11/22 15:11:00 EDT, [id number], 153, cm, 10/02/22 9:17:00 EDT, Height Start Date: 12/11/22 Status: Ordered citalopram 20 mg oral tablet 1 tablet, By Mouth, Daily, # 90 tablet, 1 Refills, Maintenance, 01/06/22 13:02:00 EDT, [facility]/pharmacy#[id number], Office visit needed for further refills., 153, [...] Refills, Maintenance, 07/08/22 13:25:00 EDT, [id number], 84, APPLY 1 PATCH TOPICALLY EVERY WEEK FOR 21 DAYS, APPLY 1 PATCH EVERY WEEK, 153, c... Start Date: 07/08/22 Status: Ordered Problem List Condition Confirmation Course Effective Dates Status [facility] Informant Generalized anxiety disorder with [...] Primary Care Member Role: PCP Address: Address: [address] [place] [address]- [place] Care Team Related Persons Name: SUAD PARKER Name: GUERO DYKES Address: home [address] [place] [address] Name: MYRA HOSKINS Address: home [address] [place] [address]
--- OUTSIDE RECORDS SUMMARY | 2023-12-04 17:01 | XMS_ITS | Continuity of Care Document ---
Author Organization [facility] Address [address] [place] [address]- Care Team Providers Care Medical Office Assistant Instructor Name Role Phone Ken Milan DO Primary Care Physician En[facility] Date(s): 10/08/22 - 11/07/22 [facility] [address] [place], [place] [address] Allergies, Adverse Reactions, Alerts Substance Reaction Severity [...] Replace Required Details, Route to Pharmacy Electronically, [facility]/pharmacy #[id number], Partial... Start Date: 10/02/22 Status: Ordered citalopram 20 mg oral tablet 1 tablet, By Mouth, Daily, # 90 tablet, 1 Refills, Maintenance, 01/06/22 13:02:00 EDT, [facility]/pharmacy#[id number], Office visit needed for further refills., 153, cm, 09/03/21 15:32:00 EDT, Height Start Date: 01/06/22 Status: Ordered hydrOXYzine hydrochloride 25 mg oral tablet 1 tablet = 25 mg, By Mouth, 3 times a day, PRN as needed for anxiety, PRN anxiety/panic attacks needs office visit, # 90 tablet, 5 Refills, Maintenance, 05/19/22 11:16:00 EST, Tablet, [facility]/pharmacy #[id number], 153, cm, 04/21/22 10:08:00 EST, Height Start Date: 05/19/22 Stop Date: 11/15/22 Status: Ordered LORazepam 0.5 mg oral tablet 1 tablet = 0.5 mg, By Mouth, Daily, PRN as needed for anxiety, Do not use daily, # 7 tablet, 0 Refills, Maintenance, 10/21/22 16:11:00 EDT, Tablet, [facility]/pharmacy #[id number], Partial fill upon patient request if the prescription is for a schedule II opioid d... Start Date: 10/21/22 Stop Date: 11/20/22 Status: Ordered Xulane 150 mcg-35 mcg/24 hr transdermal film, extended release See Instructions, APPLY 1 PATCH TOPICALLY EVERY WEEK FOR 21 DAYS, APPLY 1 PATCH EVERY WEEK, # 9 patch, 3 Refills, Maintenance, 07/08/22 13:25:00 EDT, [id number], 84, APPLY 1 PATCH TOPICALLY EVERY WEEK [...] Primary Care Member Role: PCP Address: Address: [address] [place] [address]- [place] Care Team Related Persons Name: SUAD PARKER Name: GUERO DYKES Address: home [address] [place] [address] Name: MYRA HOSKINS Address: home [address] [place] [address]
--- OUTSIDE RECORDS SUMMARY | 2023-12-04 17:01 | XMS_ITS | Continuity of Care Document ---
Author Organization [facility] Address [address] [place] [address]- Care Team Providers Care Windows Server Specialist Name Role Phone Quincy SLATER, Karin Primary Care Physician [phone] Encounter [facility] Date(s): 05/08/20 - 06/07/20 [facility] [address] [place] [address]- Allergies, Adverse Reactions, Alerts Substance Reaction Severity Status methadone-like opiates Activ e Immunizations Given and Recorded Vaccine Date Status Refusal Reason tetanus/diphtheria/pertussis, acel(Tdap) 03/23/08 Recorded Medications citalopram 20 mg oral tablet 20 mg, 1, tablet, By Mouth, Daily, # 30 tablet, Refills 5, Tot. Refills 5, Maintenance, 04/30/20 7:59:00 EST, Route to Pharmacy Electronically, [facility]/pharmacy #[id number], 153, cm, 04/30/20 7:35:00 EST, Height, 52.2, kg, 01/14/19 15:05:00 EDT, Dry Weight Start Date: 04/30/20 Stop Date: 10/27/20 Status: Ordered hydrOXYzine hydrochloride 25 mg oral tablet 1 tablet = 25 mg, By Mouth, 3 times a day, PRN as needed for anxiety, PRN anxiety/panic attacks needs office visit, # 90 tablet, 5 Refills, Maintenance, 05/01/20 9:52:00 EST, Tablet, [facility]/pharmacy #[id number], 153, cm, 04/30/20 7:35:00 EST, Height, 52.2, kg... Start Date: 05/01/20 Stop Date: 10/28/20 Status: Ordered LORazepam 0.5 mg oral tablet 1 tablet = 0.5 mg, By Mouth, 2 times a day, PRN as needed for anxiety, # 21 tablet, 1 Refills, Maintenance, 05/07/20 13:49:00 EST, Tablet, [facility]/pharmacy #[id number], Partial fill upon patient request if theprescription [...]
--- OUTSIDE RECORDS SUMMARY | 2023-12-04 17:01 | XMS_ITS | Continuity of Care Document ---
Author Organization [facility] Address [address] [place] [address]- Care Team Providers Care Dock Boss Name Role Phone Quincy SLATER, Karin Primary Care Physician En[place] [facility] [place] Date(s): 09/15/19 - 09/22/19 [facility] [address] [place] [address]- [place] Encounter Diagnosis Dermatitis(Discharge Diagnosis) - 09/15/19 Attending Physician: Devon Styles MD Allergies, Adverse Reactions, Alerts Substance Reaction Severity Status methadone-like opiates Activ e Immunizations Given and Recorded Vaccine Date Status Refusal Reason tetanus/diphtheria/pertussis, acel(Tdap) 03/23/08 Recorded Medications citalopram 20 mg oral tablet 20 mg, 1, tablet, By Mouth, Daily, # 30 tablet, Refills 5, Tot. Refills 5, Maintenance, 08/17/19 8:18:00 EDT, Route to Pharmacy Electronically, [facility]/pharmacy #[id number], 153, cm, 08/17/19 7:55:00 EDT, Height, 52.2, kg, 01/14/19 15:05:00 EDT, Dry Weight Start Date: 08/17/19 Status: Ordered hydrOXYzine hydrochloride 25 mg oral tablet 1 tablet = 25 mg, By Mouth, 3 times a day, PRN as needed for anxiety, PRN anxiety/panic attacks needs office visit, # 90 tablet, 5 Refills, Maintenance, 08/17/19 8:18:00 EDT, Tablet, [id number], 153, cm, 08/17/19 7:55:00 EDT, Height, 52.2, kg... Start Date: 08/17/19 Stop Date: 02/13/20 Status: Ordered predniSONE 20 mg oral tablet See Instructions, 3 tabs po qd x 3 days, then 2 tabs po qd x 3 days, then 1 tab po qd x 3 days, then off. with food, # 18 tablet, 1 Refills, Acute 09/25/19 13:14:00 EDT, 09/25/19 13:14:00 EDT, Tablet, [facility]/pharmacy #[id number], 153, cm, 09/15/19 12:34:00 ED... Start Date: 09/25/19 Stop Date: 09/25/19 Status: Ordered Xulane 150 mcg-35 mcg/24 hr [...] Diagnosis Diagnosis Type Effective Dates Health Status Clini consuelo Service Informant Dermatitis Discharge Diagnosis 09/15/19 Vital Signs Most recent to oldest [Reference Range]: 1 Height 153 cm (09/15/19 12:34 PM) Social History Social History Type Response Tobacco Other: quit Dec, or to this sporadic. Sex
--- OUTSIDE RECORDS SUMMARY | 2023-12-04 17:01 | XMS_ITS | Continuity of Care Document ---
Author Organization [facility] Address [address] [place] [address]- Care Team Providers Care Science Professor Name Role Phone Quincy SLATER, Karin Primary Care Physician [phone] [place] [facility] Date(s): 04/27/20 - 05/27/20 [facility] [address] [place] [address]- Allergies, Adverse Reactions, Alerts Substance Reaction Severity Status methadone-like opiates Activ e Immunizations Given and Recorded Vaccine Date Status Refusal Reason tetanus/diphtheria/pertussis, acel(Tdap) 03/23/08 Recorded Medications citalopram 20 mg oral tablet 20 mg, 1, tablet, By Mouth, Daily, # 30 tablet, Refills 5, Tot. Refills 5, Maintenance, 04/30/20 7:59:00 EST, Route to Pharmacy Electronically, [facility]/pharmacy #[id number], 153, cm, 04/30/20 7:35:00 EST, Height, 52.2, kg, 01/14/19 15:05:00 EDT, Dry Weight Start Date: 04/30/20 Stop Date: 10/27/20 Status: Ordered hydrOXYzine hydrochloride 25 mg oral tablet 1 tablet = 25 mg, By Mouth, 3 times a day, PRN as needed for anxiety, PRN anxiety/panic attacks needs office visit, # 90 tablet, 5 Refills, Maintenance, 05/01/20 9:52:00 EST, Tablet, [facility]/pharmacy #[id number], 153, cm, 04/30/20 7:35:00 EST, Height, 52.2, kg... Start Date: 05/01/20 Stop Date: 10/28/20 Status: Ordered LORazepam 0.5 mg oral tablet 1 tablet = 0.5 mg, By Mouth, 2 times a day, PRN as needed for anxiety, # 21 tablet, 1 Refills, Maintenance, 05/07/20 13:49:00 EST, Tablet, [facility]/pharmacy #[id number], Partial fill upon patient request if theprescription [...]
--- OUTSIDE RECORDS SUMMARY | 2023-12-04 17:01 | XMS_ITS | Continuity of Care Document ---
Author Organization [facility] Address [address] [place] [address]- Care Team Providers Care Machine Records Units Supervisor Name Role Phone Angela SLATER, Felecia Primary Care Physician [id number] Date(s): 03/20/22 - 03/27/22 [facility] [address] [place] [address]- Encounter Diagnosis Arm skin lesion, left(Discharge Diagnosis) - 03/24/22 MDD (recurrent major depressive disorder) in remission(Discharge Diagnosis) - 03/24/22 Attending Physician: Liang SLATER, Dileep Negron Allergies, Adverse [...] 0 Refills, Maintenance, 03/06/22 15:47:00 EST, Tablet, [id number], Partialfill upon patient request if the prescription is fo... Start Date: 03/06/22 Stop Date: 04/05/22 Status: Ordered Macrobid macrocrystals-monohydrate 100 mg oral capsule 1 capsule = 100 mg, By Mouth, 2 times a day, for 5 days, # 10 capsule, 0 Refills, Acute 03/31/22 10:38:00 EST, 03/26/22 10:38:00 EST, Capsule, [id number], Partial fill upon patient request ifthe prescription is for a schedule II opioid drug.,... Start Date: 03/26/22 Stop Date: 03/31/22 Status: Ordered Wellbutrin SR 150 mg/12 hours [...] remission Confirmed Active Seasonal allergies Confirmed Active Diagnosis Diagnosis Type Effective Dates Health Status Clinical Service Informant Arm skin lesion, left Discharge Diagnosis 03/24/22 MDD (recurrent major depressive disorder) in remission Discharge Diagnosis 03/24/22 Vital Signs Most recent to oldest [Reference Range]: 1 Height 153 cm (03/20/22 3:19 PM) Pulse Rate [55-90 bpm] 80 bpm (03/20/22 3:19 PM) Blood Pressure [90-138/55-84 mm Hg] 102/ 67mm Hg (03/20/22 3:19 PM) Blood pressure sites Arm, left (03/20/22 3:19 PM) Social History Social History Type Response Tobacco Other: quit Oct, or to this sporadic. Sex Patient Care team information Care Team Personnel Name: Felecia Miller NP Position: [facility] Associate Professional Member Role: PCP Address: Address: [address] [place] [address] [place] [address]- Care Team Related Persons Name: SUAD PARKER Name: GUERO DYKES Address: home [address] [place] [address] Name: MYRA HOSKINS Address: [address] [place] [address]
--- OUTSIDE RECORDS SUMMARY | 2023-12-04 17:01 | XMS_ITS | Continuity of Care Document ---
Author Organization [facility] Address [address] [place] [address]- Care Team Providers Care Bricklayer Helper Name Role Phone Ken Milan DO Primary Care Physician [phone] Encounter [facility] Date(s): 01/13/23 - 01/20/23 [facility] [address] [place] [address]- Encounter Diagnosis MDD (recurrent major depressive disorder) in remission(Discharge Diagnosis) - 01/13/23 Generalized anxiety disorder with panic attacks(Discharge Diagnosis) - 01/13/23 Attending Physician: Carri Irizarry NP Allergies, Adverse Reactions, Alerts Substance Reaction Severity Status methadone-like opiates Activ e Immunizations Given and Recorded Vaccine Date Status Refusal Reason tetanus/diphtheria/pertussis, acel(Tdap) 03/23/08 Recorded Medications citalopram 40 mg oral tablet 40 mg, 1, tablet, By Mouth, Daily, # 90 tablet, Refills 3, Tot. Refills 3, Maintenance, 01/13/23 10:32:00 EDT, Route to Pharmacy Electronically, [facility]/pharmacy #[id number], Partial fill upon patient request if the prescription is for a schedule II opioid drug... Start Date: 01/13/23 Status: Ordered hydrOXYzine hydrochloride 25 mg oral tablet 1 tablet, By Mouth, 3 times a day, PRN NEEDED, ANXIETY/PANIC ATTACKS NEEDS OFFICE VISIT., # 270 tablet, 0 Refills, Maintenance, 12/22/22 10:22:00 EDT, [id number], 153, cm, 10/02/22 9:17:00 EDT, Height Start Date: 12/22/22 Status: Ordered LORazepam 0.5 mg oral tablet 1 tablet = 0.5 mg, By Mouth, Daily, PRN as needed for anxiety, Do not use daily, # 7 tablet, 0 Refills, Maintenance, 10/21/22 16:11:00 EDT, Tablet, [facility]/pharmacy #[id number], Partial fill upon patient request if the prescription is for a schedule II opioid d... Start Date: 10/21/22 Stop Date: 11/20/22 Status: Ordered Xulane 150 mcg-35 mcg/24 hr transdermal film, extended release See Instructions, APPLY 1 PATCH TOPICALLY EVERY WEEK FOR 21 DAYS, APPLY 1 PATCH EVERY WEEK, # 9 patch, 3 Refills, Maintenance, 07/08/22 13:25:00 EDT, [id number], 84, APPLY 1 PATCH TOPICALLY EVERY WEEK [...] Effective Dates Health Status Clinical Service Informant MDD (recurrent major depressive disorder) in remission Discharge Diagnosis 01/13/23 Generalized anxiety disorder with panic attacks Discharge Diagnosis 01/13/23 Vital Signs Most recent to oldest [Reference Range]: 1 Height 153 cm (01/13/23 10:10 AM) Weight 49.7 kg (01/13/23 10:10 AM) Oxygen Saturation [94-100 %] 100 % (01/13/23 10:10 AM) Pulse Rate [55-90 bpm] 71 bpm (01/13/23 10:10 AM) Body Mass Index [18.5-24.99 kg/m2] 21.23 kg/m2 (01/13/23 10:10 AM) Blood Pressure [90-138/55-84 mm Hg] 109/ 73mm Hg (01/13/23 10:10 AM) Mode of Delivery (Oxygen) Room air (01/13/23 10:10 AM) Blood pressure sites Arm, left (01/13/23 10:10 AM) Weight Obtained Via Standing scale (01/13/23 10:10 AM) Social History Social History Type Response Smoking Status Smoker, current stat us unknown; Type: Cigarettes; Other: restarted recently due to panic attack (10/02/2022); entered on: 10/02/22 Sex Note * Zee Wesley: PERFORM, SIGN, VERIFY Event Display: Patient Education/Instruction Authored Date: [id number] [facility] *[facility] Clinical Summary Name MARIA EUGENIA DYKES Age 42 Years 1980 PCP Ken Milan DO PCP Visit Date 01/13/2023 10:00:00 Additional Instructions: Scheduled Appointments?? Future Appointments ?*[facility] ?[address],??[place],??[address] ?Phone:??--?Fax:??-- ?Appt. Date:??03/18/2023?10:20 AM ?Scheduled Provider:??Carri Irizarry NP Follow-Up Instructions ?? With: Address: When: Carri Irizarry NP [address] [place] [address] In 2 months Comments: Annual CPE Diagnosis Generalized anxiety disorder; Major depressive disorder, recurrent, in remission, unspecified; Panic disorder [episodic paroxysmal anxiety] Medications: Please continue your medications until treatment is completed or stopped by your provider. Discuss any questions related to medications with your provider. Medications to Continue Taking That Have [facility]anged [id number] [address] [place], [place] [id number], [phone] - Citalopram (citalopram 40 mg oral tablet) 1 tab(s) Oral Daily. Refills: 3. Next Dose: Medications to Continue with No Changes These medications were not printed or sent to your pharmacy Ethinyl Estradiol-Norelgestromin (Xulane 150 mcg-35 mcg/24 hr transdermal film, extended release) APPLY 1 PATCH TOPICALLY EVERY WEEK FOR 21 DAYS, APPLY 1 PATCH EVERY WEEK. Refills: 3. Next Dose: HydrOXYzine (hydrOXYzine hydrochloride 25 mg oral tablet) 1 tab(s) Oral 3 times a day as needed. ANXIETY/PANIC ATTACKS NEEDS OFFICE VISIT.. Refills: 0. Next Dose: Lorazepam (LORazepam 0.5 mg oral tablet) 1 tab(s) Oral Daily as needed as needed for anxiety for 30Days. Do not use daily. Refills: 0. Next Dose: Allergy Info:?? methadone-like opiates Medications Given This Visit Future Orders ?No future orders Vital Signs Height 153 cm Weight 49.7 kg BMI 21.23 kg/m2 Blood Pressure 109 mm Hg/73 mm Hg Temperature Pulse Rate 71 bpm Respiratory Rate 02 Sat Mode of Delivery 100 %/Room air You can now view a summary of your hospital visit from the comfort of your home through a free online portal called [employer]. [employer] is a website that allows you to securely view your medical information including discharge summary, medications and follow-up visits. ??You can alsosend a secure electronic message to your doctor???s office to request appointments, renew medications or just ask a question. You can enroll at [email or web address] or register during your next office visit. Disclaimer:?? The information provided is of a general nature and is intended to be used in conjunction with the recommendations and advice of your health care practitioner. ??Every effort has been made to ensure that the information provided is accurate and complete at the time it is provided to you however, as your needs change, or, as new ??information becomes available, different or additional instructions may be required. If you have questions, please consult with your primary care provider or pharmacist, as appropriate. ??This information is not intended to serve as substitution for assessment and evaluation by a qualified health care provider. If you do not have a primary care provider, you may find a [facility] provider by calling [facility] at [phone]. [facility], in keeping with [facility] guidance, no longer requires face masks for staff, patientsor visitors in most situations. Similar to time spent indoors at other locations, there is the chance that you were exposed to respiratory viruses during your time with us (such as flu or COVID-19).? If you develop symptoms concerning for a viral respiratory infection, please seek testing (and treatment if indicated) from your medical provider or home test kit. For information about the plan of care including goals and instructions for your diagnosis, please see the patient education orders section of this document. Patient Education Materials?? The content of this educational material or handout may have been modified, supplemented, or adapted from its original content and format to support your individualized medical care. Patient Care team information Care Team Personnel Name: Ken Milan DO Position: [facility] Physician - Primary Care Member Role: PCP Address: Address: [address] [place] [address] [place] Care Team Related Persons Name: SUAD PARKER Name: GUERO DYKES Address: home [address] [place] [address] Name: MYRA HOSKINS Address: home [address] [place] [address]
--- OUTSIDE RECORDS SUMMARY | 2023-12-04 17:01 | XMS_ITS | Continuity of Care Document ---
Author Organization [facility] Address [address] [place] [address]- Care Team Providers Care Mine Analyst Name Role Phone Angela SLATER, Felecia Gannon Primary Care Physician [place] [facility] [place] 11/12/21 - 12/12/21 [facility] [address] [place] [address]- Allergies, Adverse Reactions, Alerts Substance Reaction Severity [...] quit Dec, or to this sporadic. Sex Care Team Personnel Name: Felecia Miller NP Address: [address] [place] [address] [address]
--- OUTSIDE RECORDS SUMMARY | 2023-12-04 17:01 | XMS_ITS | Continuity of Care Document ---
Author Organization [facility] Address [address] [place] [address]- Care Team Providers Care Manager Filter Name Role Phone Felecia Miller NP Primary Care Physician Encounter [facility] Date(s): 10/03/21 - 11/02/21 [facility] [address] [place] [address]- Allergies, Adverse Reactions, Alerts Substance Reaction Severity [...] EST, Route to Pharmacy Electronically, [facility]/pharmacy #[id number], 153, cm, 03/28/21 11:00:00 EST, Height Start Date: 03/28/21 Stop Date: 05/27/21 Status: Ordered hydrOXYzine hydrochloride 25 mg oral tablet 1 tablet = 25 mg, By Mouth, 3 times a day, PRN as needed for anxiety, PRN anxiety/panic attacks needs office visit, # 90 tablet, 1 Refills, Maintenance, 03/28/21 11:32:00 EST, Tablet, [facility]/pharmacy #[id number], 153, cm, 03/28/21 11:00:00 EST, Height Start Date: 03/28/21 Stop Date: 05/27/21 Status: Ordered Xulane 150 mcg-35 mcg/24 hr transdermal film, extended release 1 patch, Topically, Every week, APPLY 1 PATCH EVERY WEEK, # 3 each, 11 Refills, Maintenance, 03/28/21 11:33:00 EST, [facility]/pharmacy #[id number], 1 patch Topically Every week,x21 days,Instr:APPLY [...]
--- OUTSIDE RECORDS SUMMARY | 2023-12-04 17:01 | XMS_ITS | Continuity of Care Document ---
Author Organization [facility] Address [address] [place] [address]- Care Team Providers Care Wired Music Operator Name Role Phone Quincy SLATER, Karin Primary Care Physician [place] [facility] [place]/07[place]20 - 10/03/20 [facility] [address] [place] [address]- Encounter Diagnosis Generalized anxiety disorder with panic attacks(Discharge Diagnosis) - 09/03/20 Attending Physician: Karin Mathew NP Allergies, Adverse Reactions, Alerts Substance Reaction Severity Status methadone-like opiates Activ e Immunizations Given and Recorded Vaccine Date Status Refusal Reason tetanus/diphtheria/pertussis, acel(Tdap) 03/23/08 Recorded Medications citalopram 20 mg oral tablet 20 mg, 1, tablet, By Mouth, Daily, # 30 tablet, Refills 5, Tot. Refills 5, Maintenance, 04/30/20 7:59:00 EST, Route to Pharmacy Electronically, [facility]/pharmacy #[id number], 153, cm, 04/30/20 7:35:00 EST, [...] 1 Refills, Maintenance, 05/07/20 13:49:00 EST, Tablet, [facility]/pharmacy #[id number], Partial fill upon patient request if theprescription is for a schedule II opioid drug., 153... Start Date: 05/07/20 Status: Ordered Xulane 150 mcg-35 mcg/24 hr transdermal film, extended release 1 patch, Topically, Every week, APPLY 1 PATCH EVERY WEEK, # 3 each, 11 Refills, Maintenance, 01/14/19 15:47:54 EDT, [facility]/pharmacy #[id number] Start Date: 01/14/19 Stop Date: 09/23/19 Status: Ordered Problem List Condition Effective Dates Status Health Status Inform ant Generalized anxiety disorder with panic attacks(Confirmed) Active Shingles(Confirmed) Active Anxiety and depression(Confirmed) Active Seasonal allergies(Confirmed) Active Diagnosis Diagnosis Type Effective Dates Health Status Clinical Service Informant Generalized anxiety disorder with panic attacks Discharge Diagnosis 09/03/20 Social History Social History Type Response Tobacco Other: quit Dec, or to this sporadic. Sex
[2023-12-04 17:02] LABS: Bacteria Urine 1+ (None Seen); Hyaline Casts Urine 0-2 /LPF (0-2); RBC Urine >20 /HPF (0-2); UACC Culture Trigger YES; WBC Urine 0-5 /HPF (0-5)
--- OUTSIDE RECORDS SUMMARY | 2023-12-04 17:02 | XMS_ITS | Continuity of Care Document ---
Author Organization [facility] Address [address] [place] [address]- Care Team Providers Care Senior Manager Asset Protection Name Role Phone Karin Mathew NP Primary Care Physician [place] [facility] [place] 05/07/20 - 05/14/20 [facility] [address] [place] [address]- Encounter Diagnosis Adjustment disorder with anxiety(Discharge Diagnosis) - 05/07/20 Generalized anxiety disorder with panic attacks(Discharge Diagnosis) - 05/07/20 Attending Physician: Karin Mathew NP Allergies, Adverse Reactions, Alerts Substance Reaction Severity Status methadone-like opiates Activ e Immunizations Given and Recorded Vaccine Date Status Refusal Reason tetanus/diphtheria/pertussis, acel(Tdap) 03/23/08 Recorded Medications citalopram 20 mg oral tablet 20 mg, 1, tablet, By Mouth, Daily, # 30 tablet, Refills 5, Tot. Refills 5, Maintenance, 04/30/20 7:59:00 EST, Route to Pharmacy Electronically, [facility]/pharmacy #[id number], 153, cm, 04/30/20 7:35:00 EST, Height, [...] 1 Refills, Maintenance, 05/07/20 13:49:00 EST, Tablet, [facility]/pharmacy #[id number], Partial fill upon patient request if theprescription [...] Effective Dates Health Status Clinical Service Informant Adjustment disorder with anxiety Discharge Diagnosis 05/07/20 Generalized anxiety disorder with panic attacks Discharge Diagnosis 05/07/20 Vital Signs Most recent to oldest [Reference Range]: 1 Height 153 cm (05/07/20 1:30 PM) Social History Social History Type Response Tobacco Other: quit Dec, or to this sporadic. Sex
--- OUTSIDE RECORDS SUMMARY | 2023-12-04 17:02 | XMS_ITS | Continuity of Care Document ---
Author Organization [facility] Address [address] [place] [address]- Care Team Providers Care Stopper Setter Name Role Phone Ken Milan DO Primary Care Physician [id number] Date(s): 12/05/22 - 01/07/23 [facility] [address] [place] [address]- Attending Physician: Not on Staff, Attending MD Allergies, Adverse Reactions, Alerts Substance Reaction Severity Status methadone-like opiates Activ e Immunizations Given and Recorded Vaccine Date Status Refusal Reason tetanus/diphtheria/pertussis, acel(Tdap) 03/23/08 Recorded Medications citalopram 10 mg oral tablet 1 tablet, By Mouth, Daily, TD: 30MG), # 90 tablet, 1 Refills, Maintenance, 12/20/22 12:36:00 EDT, [id number], 153, cm, 10/02/22 9:17:00 EDT, Height Start Date: 12/20/22 Status: Ordered hydrOXYzine hydrochloride 25 mg oral tablet 1 tablet, By Mouth, 3 times a day, PRN NEEDED, ANXIETY/PANIC ATTACKS NEEDS OFFICE VISIT., # 270 tablet, 0 Refills, Maintenance, 12/22/22 10:22:00 EDT, [facility], 153, cm, 10/02/22 9:17:00 EDT, Height Start Date: 12/22/22 Status: Ordered LORazepam 0.5 mg oral tablet 1 tablet = 0.5 mg, By Mouth, Daily, PRN as needed for anxiety, Do not use daily, # 7 tablet, 0 Refills, Maintenance, 10/21/22 16:11:00 EDT, [facility]t, [id number], Partial fill upon patient request if the prescription is for a schedule II opioid d... Start Date: 10/21/22 Stop Date: 11/20/22 Status: Ordered Xulane 150 mcg-35 mcg/24 hr transdermal film, extended release See Instructions, APPLY 1 PATCH TOPICALLY EVERY WEEK FOR 21 DAYS, APPLY 1 PATCH EVERY WEEK, # 9 patch, 3 Refills, Maintenance, 07/08/22 13:25:00 EDT, [facility] 488[facility], 84, APPLY 1 PATCH TOPICALLY EVERY WEEK [...] Team Personnel Name: Ken Milan DO Position: [facility] Physician - Primary Care Member Role: PCP Address: Address: [address] [place] [address]- [place] Care Team Related Persons Name: SUAD PARKER Name: GUERO DYKES Address: home [address] [place] [address] Name: MYRA HOSKINS Address: home [address] [place] [address]
--- OUTSIDE RECORDS SUMMARY | 2023-12-04 17:02 | XMS_ITS | Continuity of Care Document ---
Author Organization [facility] Address [address] [place] [address]- Care Team Providers Care Tower Switch Operator Name Role Phone Angela SLATER, Felecia Darling Primary Care Physician Encounter [facility] Date(s): 11/20/21 - 12/20/21 [facility] [address] [place] [address]- Allergies, Adverse Reactions, Alerts Substance Reaction Severity [...] Personnel Name: Felecia Miller NP Address: Address: [address] [place] [address] [address] [place], [place] [address]
--- OUTSIDE RECORDS SUMMARY | 2023-12-04 17:02 | XMS_ITS | Continuity of Care Document ---
Author Organization [facility] Address [address] [place] [address]- Care Team Providers Care Child Care Center Assistant Director Name Role Phone Ken Milan DO Primary Care Physician [phone] [place] [facility] [place] 05/14/22 - 06/13/22 [facility] [address] [place] [address]- Allergies, Adverse Reactions, Alerts Substance Reaction Severity [...] anxiety, # 7 tablet, 0 Refills, Maintenance, 05/19/22 11:16:00 EST, Tablet, [id number], Partial fill upon patient request if the prescription is for a schedule II opioid drug., 153, cm, ... Start Date: 05/19/22 Stop Date: 06/18/22 Status: Ordered Problem List Condition Confirmation Course [...] DO Position: [facility] Primary Care Physician Member Role: PCP Address: Address: [address] [place] [address]- Care Team Related Persons Name: SUAD PARKER Name: GUERO DYKES Address: home [address] [place] [address] Name: MYRA HOSKINS Address: home [address] [place] [address]
--- OUTSIDE RECORDS SUMMARY | 2023-12-04 17:02 | XMS_ITS | Continuity of Care Document ---
Author Organization [facility] Address [address] [place] [address]- Care Team Providers Care Dye Box Operator Name Role Phone Ken Milan DO Primary Care Physician [place] [facility] [place] 12/08/22 - 01/07/23 [facility] [address] [place] [address]- Attending Physician: Curtis Cerda Admitting Physician: Curtis Cerda Referring Physician: AdmtrCurtis Allergies, Adverse Reactions, Alerts Substance Reaction Severity Status methadone-like opiates Activ e Immunizations Given and Recorded Vaccine Date Status Refusal Reason tetanus/diphtheria/pertussis, acel(Tdap) 03/23/08 Recorded Medications citalopram 10 mg oral tablet 1 tablet, By Mouth, Daily, TD: 30MG), # 90 tablet, 1 Refills, Maintenance, 12/20/22 12:36:00 EDT, [facility], 153, cm, 10/02/22 9:17:00 EDT, Height Start Date: 12/20/22 Status: Ordered hydrOXYzine hydrochloride 25 mg oral tablet 1 tablet, By Mouth, 3 times a day, PRN NEEDED, ANXIETY/PANIC ATTACKS NEEDS OFFICE VISIT., # 270 tablet, 0 Refills, Maintenance, 12/22/22 10:22:00 EDT, [facility]77, 153, cm, 10/02/22 9:17:00 EDT, Height Start [...] Refills, Maintenance, 07/08/22 13:25:00 EDT, [facility], 84, APPLY 1 PATCH TOPICALLY EVERY WEEK [...] Team Personnel Name: Ken Milan DO Position: [facility] Physician - Primary Care Member Role: PCP Address: Address: [address] [place] [address]- [place] Care Team Related Persons Name: SUAD PARKER Name: GUERO DYKES Address: [address] [place] [address] Name: MYRA HOSKINS Address: home [address] [place] [address]
--- OUTSIDE RECORDS SUMMARY | 2023-12-04 17:02 | XMS_ITS | Continuity of Care Document ---
Author Organization [facility] Address [address] [place] [address]- Care Team Providers Care Solvent Recoverer Name Role Phone Ken Milan DO Primary Care Physician [place] [facility] Date(s): 05/14/22 - 06/13/22 [facility] [address] [place] [address]- Allergies, Adverse Reactions, Alerts Substance Reaction Severity [...] Personnel Name: Ken Milan DO Position: S Primary Care Physician Member Role: PCP Address: Address: [address] [place] [address]- Care Team Related Persons Name: SUAD PARKER Name: GUERO DYKES Address: home [address] [place] [address] Name: MYRA HOSKINS Address: home [address] [place] [address]
--- OUTSIDE RECORDS SUMMARY | 2023-12-04 17:02 | XMS_ITS | Continuity of Care Document ---
Author Organization [facility] Address [address] [place] [address]- Care Team Providers Care Welding Teacher Name Role Phone Ken Milan DO Primary Care Physician En[facility] Date(s): 10/02/22 - 12/18/22 [facility] [address] [place] [address]- Attending Physician: Ken Milan DO Allergies, Adverse Reactions, Alerts Substance Reaction Severity [...] Replace Required Details, Route to Pharmacy Electronically, [facility]/pharmacy #[id number], Partial... Start Date: 10/02/22 Status: Ordered [...] 5 Refills, Maintenance, 05/19/22 11:16:00 EST, Tablet, [facility]/pharmacy #[id number], 153, cm, 04/21/22 10:08:00 EST, Height [...] Refills, Maintenance, 07/08/22 13:25:00 EDT, [facility], 84, APPLY 1 PATCH TOPICALLY EVERY WEEK [...] Primary Care Member Role: PCP Address: Address: [address] [place] [address]- Care Team Related Persons Name: SUAD PARKER Name: GUERO DYKES Address: [address] [place] [address] Name: MYRA HOSKINS Address: home [address] [place] [address]
--- OUTSIDE RECORDS SUMMARY | 2023-12-04 17:02 | XMS_ITS | Continuity of Care Document ---
Author Organization [facility] Address [address] [place] [address]- Care Team Providers Care Hairspring Cutter Name Role Phone Angela SLATER, Felecia Gannon Primary Care Physician [place] [facility] [place] 03/[place] - 04/27/21 [facility] [address] [place] [address]- Attending Physician: Curtis Cerda Admitting Physician: AdmCurtis [...] OF BREATH, # 6.7 each, 0 Refills, [facility] 29305, 153, cm, 03/28/21 11:00:00 EST, Height Start Date: 04/17/21 Status: Ordered citalopram 20 mg oral tablet 20 mg, 1, tablet, By Mouth, Daily, # 90 tablet, Refills 3, Tot. Refills 3, Maintenance, 03/28/21 11:31:00 EST, Route to Pharmacy Electronically, [facility]/pharmacy #[id number], 153, cm, 03/28/21 11:00:00 EST, [...]
--- OUTSIDE RECORDS SUMMARY | 2023-12-04 17:02 | XMS_ITS | Continuity of Care Document ---
Author Organization [facility] Address [address] [place] [address]- Care Team Providers Care Flotation Operator Name Role Phone Felecia Miller NP Primary Care Physician [phone] [place] [facility] [place](s): 03/20/22 - 04/19/22 [facility] [address] [place] [address]- Attending Physician: AdmCurtis villanueva Admitting Physician: AdmtrCurtis [...] tablet, 1 Refills, Maintenance, 01/06/22 13:02:00 EDT, [facility]/pharmacy#[id number], Office visit needed for further refills., 153, cm, 09/03/21 15:32:00 EDT, Height Start Date: 01/06/22 Status: Ordered hydrOXYzine hydrochloride 25 mg oral tablet 1 tablet = 25 mg, By Mouth, 3 times a day, PRN as needed for anxiety, PRN anxiety/panic attacks needs office visit, # 90 tablet, 1 Refills, Maintenance, 01/06/22 18:57:00 EDT, Tablet, [facility]/pharmacy #[id number], 153, cm, 09/03/21 15:32:00 EDT, Height Start Date: 01/06/22 Stop Date: 03/07/22 Status: Ordered LORazepam 0.5 mg oral tablet 1 tablet = 0.5 mg, By Mouth, 2 times a day, PRN as needed for anxiety, # 10 tablet, 0 Refills, Maintenance, 01/06/22 18:57:00 EDT, Tablet, [facility]/pharmacy #[id number], Partial fill upon patient request if theprescription is for a schedule II opioid drug., 153... Start Date: 01/06/22 Status: Ordered LORazepam 0.5 mg oral tablet 1 tablet = 0.5 mg, By Mouth, Daily, PRN as needed for anxiety, schedule office appt for mood management, # 7 tablet, 0 Refills, Maintenance, 03/06/22 15:47:00 EST, Tablet, [facility]/pharmacy #[id number], Partialfill upon patient request if the [...] Team Personnel Name: Felecia Miller NP Position: [facility] Associate Professional Member Role: PCP Address: Address: [address] [place] [address] [place] [address]- Care Team Related Persons Name: SUAD PARKER Name: GUERO DYKES Address: home [address] [place] [address] Name: MYRA HOSKINS Address: home [address] [place] [address]
--- OUTSIDE RECORDS SUMMARY | 2023-12-04 17:02 | XMS_ITS | Continuity of Care Document ---
Author Organization [facility] Address [address] [place] [address]- Care Team Providers Care Fisher Trot Line Name Role Phone Angela SLATER, Felecia Gannon Primary Care Physician [phone] Encounter [facility] [place] Date(s): 02/11/21 - 03/13/21 [facility] [address] [place] [address]- Allergies, Adverse Reactions, Alerts Substance Reaction Severity Status methadone-like opiates Activ e Immunizations Given and Recorded Vaccine Date Status Refusal Reason tetanus/diphtheria/pertussis, acel(Tdap) 03/23/08 Recorded Medications citalopram 20 mg oral tablet 20 mg, 1, tablet, By Mouth, Daily, # 30 tablet, Refills 1, Tot. Refills 1, Maintenance, 02/22/21 10:33:00 EST, Route to Pharmacy Electronically, [facility]/pharmacy #[id number], 153, cm, 05/21/20 15:58:00 EST, Height Start Date: 02/22/21 Stop Date: 04/23/21 Status: Ordered hydrOXYzine hydrochloride 25 mg oral tablet 1 tablet = 25 mg, By Mouth, 3 times a day, PRN as needed for anxiety, PRN anxiety/panic attacks needs office visit, # 90 tablet, 1 Refills, Maintenance, 02/22/21 10:33:00 EST, Tablet, [facility]/pharmacy #[id number], 153, cm, 05/21/20 15:58:00 EST, [...] each, 11 Refills, Maintenance, 01/14/19 15:47:54 EDT, [facility]/pharmacy #[id number] Start Date: 01/14/19 Stop Date: 09/23/19 Status: Ordered Problem List Condition Effective Dates Status Health Status Inform ant Generalized anxiety disorder with panic attacks(Confirmed) Active Shingles(Confirmed) Active Anxiety and depression(Confirmed) Active Seasonal allergies(Confirmed) Active Social History Social History Type Response Tobacco Other: quit Dec, or to this sporadic. Sex
--- OUTSIDE RECORDS SUMMARY | 2023-12-04 17:02 | XMS_ITS | Continuity of Care Document ---
Author Organization [facility] Address [address] [place] [address]- Care Team Providers Care Family Coach Name Role Phone Ken Milan DO Primary Care Physician [place] [facility] [place](s[place] 01/15/23 - 04/17/23 [facility] [address] [place] [address]- Encounter Diagnosis Encounter for routine adult health examination(Discharge Diagnosis) - 03/18/23 MDD (recurrent major depressive disorder) in remission(Discharge Diagnosis) - 03/18/23 Generalized anxiety disorder with panic attacks(Discharge Diagnosis) - 03/18/23 Screening for cardiovascular condition(Discharge Diagnosis) - 03/18/23 Abnormal screening mammogram(Discharge Diagnosis) - 03/18/23 Attending Physician: Carri Irizarry NP Allergies, Adverse [...] 01/13/23 10:32:00 EDT, Route to Pharmacy Electronically, [facility]/pharmacy #[id number], Partial fill upon patient request if the prescription is for a schedule II opioid drug... Start Date: 01/13/23 Status: Ordered hydrOXYzine hydrochloride 25 mg oral tablet 1 tablet, By Mouth, 3 times a day, PRN NEEDED, ANXIETY/PANIC ATTACKS NEEDS OFFICE VISIT., # 270 tablet, 0 Refills, Maintenance, 12/22/22 10:22:00 EDT, [id number], 153, cm, 10/02/22 9:17:00 EDT, Height Start [...] Refills, Maintenance, 07/08/22 13:25:00 EDT, [id number], 84, APPLY 1 PATCH TOPICALLY EVERY WEEK [...] Effective Dates Health Status Clinical Service Informant Encounter for routine adult health examination Discharge Diagnosis 03/18/23 MDD (recurrent major depressive disorder) in remission Discharge Diagnosis 03/18/23 Generalized anxiety disorder with panic attacks Discharge Diagnosis 03/18/23 Screening for cardiovascular condition Discharge Diagnosis 03/18/23 Abnormal screening mammogram Discharge Diagnosis 03/18/23 Social History Social History Type Response Smoking Status Smoker, current stat us unknown; Type: Cigarettes; Other: restarted recently due to panic attack (10/02/2022); entered on: 10/02/22 Sex Patient Care team information Care Team Personnel Name: Ken Milan DO Position: S Physician - Primary Care Member Role: PCP Address: Address: [address] [place] [address] [place] [address]- [place] Care Team Related Persons Name: SUAD PARKER Name: GUERO DYKES Address: home [address] [place] [address] Name: MYRA HOSKINS Address: home [address] [place] [address]
--- OUTSIDE RECORDS SUMMARY | 2023-12-04 17:02 | XMS_ITS | Continuity of Care Document ---
Author Organization [facility] Address [address] [place] [address]- Care Team Providers Care Hardscape Foreman Name Role Phone Felecia Miller NP Primary Care Physician [place] [facility] [place](s): 03/28/21 - 04/04/21 [facility] [address] [place] [address]- Encounter Diagnosis Anxiety and depression(Discharge Diagnosis) - 03/28/21 Generalized anxiety disorder with panic attacks(Discharge Diagnosis) - 03/28/21 MDD (recurrent major depressive disorder) in remission(Discharge Diagnosis) - 03/28/21 Seasonal allergies(Discharge Diagnosis) - 03/28/21 Recent URI(Discharge Diagnosis) - 03/28/21 Screening due(Discharge Diagnosis) - 03/28/21 Attending Physician: Felecia Miller NP Allergies, Adverse Reactions, Alerts Substance Reaction Severity Status methadone-like opiates Activ e Immunizations Given and Recorded Vaccine Date Status Refusal Reason tetanus/diphtheria/pertussis, acel(Tdap) 03/23/08 Recorded Medications albuterol CFC free 90 mcg/inh inhalation aerosol 2, puffs, Inhalation, Every 6 hours, PRN, for 14 days, # 1 each, Refills 0, Tot. Refills 0, Acute 04/11/21 11:33:00 EST, 03/28/21 11:33:00 EST, Aerosol, Route to Pharmacy Electronically, [id number], [facility]/pharmacy #[id number], 153, c... Start Date: 03/28/21 Stop Date: 04/11/21 Status: Ordered citalopram 20 mg oral tablet 20 mg, 1, tablet, By Mouth, Daily, # 90 tablet, Refills 3, Tot. Refills 3, Maintenance, 03/28/21 11:31:00 EST, Route to Pharmacy Electronically, [facility]/pharmacy #[id number], 153, cm, 03/28/21 11:00:00 EST, Height Start Date: 03/28/21 Stop Date: 05/27/21 Status: Ordered hydrOXYzine hydrochloride 25 mg oral tablet 1 tablet = 25 mg, By Mouth, 3 times a day, PRN as needed for anxiety, PRN anxiety/panic attacks needs office visit, # 90 tablet, 1 Refills, Maintenance, 03/28/21 11:32:00 EST, Tablet, [facility]/pharmacy #[id number], 153, cm, 03/28/21 11:00:00 EST, Height Start Date: 03/28/21 Stop Date: 05/27/21 Status: Ordered Xulane 150 mcg-35 mcg/24 hr transdermal film, extended release 1 patch, Topically, Every week, APPLY 1 PATCH EVERY WEEK, # 3 each, 11 Refills, Maintenance, 03/28/21 11:33:00 EST, [facility]/pharmacy #[id number], 1 patch Topically Every week,x21 [...] Service Informant Anxiety and depression Discharge Diagnosis 03/28/21 Generalized anxiety disorder with panic attacks Discharge Diagnosis 03/28/21 MDD (recurrent major depressive disorder) in remission Discharge Diagnosis 03/28/21 Seasonal allergies Discharge Diagnosis 03/28/21 Screening due Discharge Diagnosis 03/28/21 Recent URI Discharge Diagnosis 03/28/21 Vital Signs Most recent to oldest [Reference Range]: 1 Height 153 cm (03/28/21 11:00 AM) Social History Social History Type Response Tobacco Other: quit Dec, or to this sporadic. Sex
--- OUTSIDE RECORDS SUMMARY | 2023-12-04 17:02 | XMS_ITS | Continuity of Care Document ---
Author Organization [facility] Address [address] [place] [address]- Care Team Providers Care Assistant Gm Of Content & Delivery Name Role Phone Ken Milan DO Primary Care Physician [phone] [place] [facility] [place]/18/23 - 04/23/23 [facility] [address] [place] [address]- Attending Physician: Edie SLATER, Carri Gannon Referring Physician: Ken Milan DO Allergies, Adverse Reactions, [...] 01/13/23 10:32:00 EDT, Route to Pharmacy Electronically, [facility]/pharmacy #[id number], Partial fill upon patient request if the prescription is for a schedule II opioid drug... Start Date: 01/13/23 Status: Ordered hydrOXYzine hydrochloride 25 mg oral tablet 1 tablet, By Mouth, 3 times a day, PRN NEEDED, ANXIETY/PANIC ATTACKS NEEDS OFFICE VISIT., # 270 tablet, 0 Refills, Maintenance, 12/22/22 10:22:00 EDT, [id number], 153, cm, 10/02/22 9:17:00 EDT, Height Start [...] Refills, Maintenance, 07/08/22 13:25:00 EDT, [facility], 84, APPLY 1 PATCH TOPICALLY EVERY WEEK [...] Primary Care Member Role: PCP Address: Address: [address] [place] [address]- [place] Care Team Related Persons Name: SUAD PARKER Name: GUERO DYKES Address: home [address] [place] [address] Name: MYRA HOSKINS Address: home [address] [place] [address]
--- OUTSIDE RECORDS SUMMARY | 2023-12-04 17:02 | XMS_ITS | Continuity of Care Document ---
Author Organization [facility] Address [address] [place] [address]- Care Team Providers Care Gasket Winder Name Role Phone Ken Milan DO Primary Care Physician [place] [facility] [place] 09/11/22 - 10/11/22 [facility] [address] [place], [place] [address] Allergies, Adverse Reactions, Alerts Substance Reaction Severity [...] Replace Required Details, Route to Pharmacy Electronically, [facility]/pharmacy #[id number], Partial... Start Date: 10/02/22 Status: Ordered citalopram 20 mg oral tablet 1 tablet, By Mouth, Daily, # 90 tablet, 1 Refills, Maintenance, 01/06/22 13:02:00 EDT, [facility]/pharmacy#0373, Office visit needed for further refills., 153, cm, 09/03/21 15:32:00 EDT, Height Start Date: 01/06/22 Status: Ordered hydrOXYzine hydrochloride 25 mg oral tablet 1 tablet = 25 mg, By Mouth, 3 times a day, PRN as needed for anxiety, PRN anxiety/panic attacks needs office visit, # 90 tablet, 5 Refills, Maintenance, 05/19/22 11:16:00 EST, Tablet, [facility]/pharmacy #[id number], 153, cm, 04/21/22 10:08:00 EST, Height Start Date: 05/19/22 Stop Date: 11/15/22 Status: Ordered LORazepam 0.5 mg oral tablet 1 tablet = 0.5 mg, By Mouth, Daily, PRN as needed for anxiety, # 7 tablet, 0 Refills, Maintenance, 10/08/22 10:07:00 EDT, [facility], [id number], Partial fill upon patient request if the prescription is for a schedule II opioid drug., 153, cm, 07/... Start Date: 10/08/22 Stop Date: 11/07/22 Status: Ordered LORazepam 0.5 mg oral tablet 1 tablet = 0.5 mg, By Mouth, Daily, PRN as needed for anxiety, for 30 days, # 7 tablet, 0 Refills, Hard Stop 10/14/22 7:31:00 EDT, 09/14/22 7:31:00 EDT, Tablet, [facility]/pharmacy #[id number], Partial fill upon patient request if the prescription is for a schedul... Start Date: 09/14/22 Stop Date: 10/14/22 Status: Ordered Xulane 150 mcg-35 mcg/24 hr transdermal film, extended release See Instructions, APPLY 1 PATCH TOPICALLY EVERY WEEK FOR 21 DAYS, APPLY 1 PATCH EVERY WEEK, # 9 patch, 3 Refills, Maintenance, 07/08/22 13:25:00 EDT, [id number], 84, APPLY 1 PATCH TOPICALLY EVERY WEEK [...] Primary Care Member Role: PCP Address: Address: [address] [place] [address]- Care Team Related Persons Name: SUAD PARKER Name: GUERO DYKES Address: home [address] [place] [address] Name: MYRA HOSKINS Address: [address] [place] [address]
--- OUTSIDE RECORDS SUMMARY | 2023-12-04 17:02 | XMS_ITS | Continuity of Care Document ---
Author Organization [facility] Address [address] [place] [address]- Care Team Providers Care Planer Hand Name Role Phone Ken Milan DO Primary Care Physician En[place] [facility] [place] Date(s): 09/22/22 - 10/22/22 [facility] [address] [place], [place] [address] Allergies, Adverse Reactions, Alerts Substance Reaction Severity [...] Replace Required Details, Route to Pharmacy Electronically, [facility]/pharmacy #[id number], Partial... Start Date: 10/02/22 Status: [...] # 7 tablet, 0 Refills, Hard Stop 11/07/22 10:07:00 EDT, 10/08/22 10:07:00 EDT, Tablet, [facility]/pharmacy #[id number], Partial fill upon patient request if the prescription is for a sched... Start Date: 10/08/22 Stop Date: 11/07/22 Status: [...] Refills, Maintenance, 07/08/22 13:25:00 EDT, [facility], 84, APPLY 1 PATCH TOPICALLY EVERY WEEK [...] Primary Care Member Role: PCP Address: Address: [address] [place] [address]- Care Team Related Persons Name: SUAD PARKER Name: GUERO DYKES Address: home [address] [place] [address] Name: MYRA HOSKINS Address: home [address] [place] [address]
--- OUTSIDE RECORDS SUMMARY | 2023-12-04 17:02 | XMS_ITS | Continuity of Care Document ---
Author Organization [facility] Address [address] [place] [address] [address] [place] [address]- Care Team Providers Care Pipe Processor Name Role Phone Ken Milan DO Primary Care Physician [place] [facility] [place](s): 04/29/22 - 05/29/22 [facility] [address] [place], [place] [address] Attending Physician: Curtis Cerda Admitting Physician: AdmtrCurtis Referring Physician: Admtr ArSandie Allergies, Adverse Reactions, Alerts Substance Reaction Severity [...] Team Personnel Name: Ken Milan DO Position: [facility] Primary Care Physician Member Role: PCP Address: Address: [address] [place] [address]- Care Team Related Persons Name: SUAD PARKER Name: GUERO DYKES Address: home [address] [place] [address] Name: MYRA HOSKINS Address: [address] [place] [address]
--- OUTSIDE RECORDS SUMMARY | 2023-12-04 17:02 | XMS_ITS | Continuity of Care Document ---
Author Organization [facility] Address [address] [place] [address] [address] [place] [address]- Care Team Providers Care Rn Recovery Name Role Phone Bjorn Ken MUÑOZ Primary Care Physician [phone] [place] [facility] [place] 04/21/22 - 04/28/22 [facility] [address] [place] [address]- Attending Physician: Jerry Purdy MD Referring Physician: [...] remission Confirmed Active Seasonal allergies Confirmed Active Vital Signs Most recent to oldest [Reference Range]: 1 Height 153 cm (04/21/22 10:08 AM) Social History Social History Type Response Tobacco Other: quit Dec, or to this sporadic. Sex Patient Care team information Care Team Personnel Name: Ken Milan DO Position: S Primary Care Physician Member Role: PCP Address: Address: [address] [place] [address]- Care Team Related Persons Name: SUAD PARKER Name: GUERO DYKES Address: home [address] [place] [address] Name: MYRA HOSKINS Address: home [address] [place] [address]
--- OUTSIDE RECORDS SUMMARY | 2023-12-04 17:02 | XMS_ITS | Continuity of Care Document ---
Author Organization [facility] Address [address] [place] [address]- Care Team Providers Care Chain Sales Representative Name Role Phone Ken Milan DO Primary Care Physician [phone] Encounter [facility] [place] Date(s): 10/02/22 - 10/09/22 [facility] [address] [place] [address]- Encounter Diagnosis Generalized anxiety disorder with panic attacks(Discharge Diagnosis) - 10/02/22 Acute stress reaction(Discharge Diagnosis) - 10/02/22 MDD (recurrent major depressive disorder) in remission(Discharge Diagnosis) - 10/02/22 Screening for malignant neoplasm of breast(Discharge Diagnosis) - 10/02/22 Attending Physician: Edie SLATER, Carri Gannon Allergies, Adverse Reactions, Alerts Substance Reaction Severity [...] Replace Required Details, Route to Pharmacy Electronically, [facility]/pharmacy #[id number], Partial... Start Date: 10/02/22 Status: [...] 5 Refills, Maintenance, 05/19/22 11:16:00 EST, Tablet, [facility]/pharmacy #[id number], 153, cm, 04/21/22 10:08:00 EST, [...] opioid drug., 153, cm, ... Start Date: 10/08/22 Stop Date: 11/07/22 Status: Ordered LORazepam 0.5 mg oral tablet 1 tablet = 0.5 mg, By Mouth, Daily, PRN as needed for anxiety, for 30 days, # 7 tablet, 0 Refills, Hard Stop 10/14/22 7:31:00 EDT, 09/14/22 7:31:00 EDT, [id number], Partial fill upon patient request if the prescription is for a schedul... Start Date: 09/14/22 Stop Date: 10/14/22 Status: Ordered Xulane 150 mcg-35 mcg/24 hr transdermal film, extended release See Instructions, APPLY 1 PATCH TOPICALLY EVERY WEEK FOR 21 DAYS, APPLY 1 PATCH EVERY WEEK, # 9 patch, 3 Refills, Maintenance, 07/08/22 13:25:00 EDT, [facility], 84, APPLY 1 PATCH TOPICALLY EVERY WEEK [...] anxiety disorder with panic attacks Discharge Diagnosis 10/02/22 Acute stress reaction Discharge Diagnosis 10/02/22 MDD (recurrent major depressive disorder) in remission Discharge Diagnosis 10/02/22 Screening for malignant neoplasm of breast Discharge Diagnosis 10/02/22 Vital Signs Most recent to oldest [Reference Range]: 1 Height 153 cm (10/02/22 9:17 AM) Weight 47 kg (10/02/22 9:17 AM) Oxygen Saturation [94-100 %] 99 % (10/02/22 9:17 AM) Pulse Rate [55-90 bpm] 90 bpm (10/02/22 9:17 AM) Body Mass Index [18.5-24.99 kg/m2] 20.08 kg/m2 (10/02/22 9:17 AM) Blood Pressure [90-138/55-84 mm Hg] 105/ 70mm Hg (10/02/22 9:17 AM) Mode of Delivery (Oxygen) Room air (10/02/22 9:17 AM) Blood pressure sites Arm, left (10/02/22 9:17 AM) Weight Obtained Via Standing scale (10/02/22 9:17 AM) Social History Social History Type Response Smoking Status Smoker, current stat us unknown; Type: Cigarettes; Other: restarted recently due to panic attack (10/02/2022); entered on: 10/02/22 Sex Note * Digna Norton: PERFORM, SIGN, VERIFY Event Display: Patient Education/Instruction Authored Date: [id number] [facility] *[facility] Clinical Summary Name MARIA EUGENIA DYKES Age 42 Years 1980 PCP Ken Milan DO PCP Visit Date 10/02/2022 09:00:00 Additional Instructions: Scheduled Appointments?? Future Appointments ?No Future Appointments Scheduled Follow-Up Instructions ?? With: Address: When: Ken Milan DO [address] [place] [address] [phone] In 6 weeks Comments: anxiety follow up/med increase Diagnosis Acute stress reaction; Major depressive disorder, recurrent, in remission, unspecified; Encounter for other screening for malignant neoplasm of breast; Generalized anxiety disorder Medications: Please continue your medications until treatment is completed or stopped by your provider. Discuss any questions related to medications with your provider. Medications to Continue Taking That Have [facility]anged [id number] [address] [place] [phone], [phone] - Citalopram (citalopram 10 mg oral tablet) 1 tablet By Mouth Daily with a 20 mg tablet (TD: 30mg).Refills: 0. Next Dose: These medications were not printed or sent to your pharmacy - Citalopram (citalopram 20 mg oral tablet) 1 tab(s) Oral Daily. Refills: 1. Next Dose: Medications to Continue with No Changes These medications were not printed or sent to your pharmacy Ethinyl Estradiol-Norelgestromin (Xulane 150 mcg-35 mcg/24 hr transdermal film, extended release) APPLY 1 PATCH TOPICALLY EVERY WEEK FOR 21 DAYS, APPLY 1 PATCH EVERY WEEK. Refills: 3. Next Dose: HydrOXYzine (hydrOXYzine hydrochloride 25 mg oral tablet) 1 tab(s) Oral 3 times a day as needed as needed for anxiety for 30 Days. PRN anxiety/panic attacks needs office visit. Refills: 5. Next Dose: Lorazepam (LORazepam 0.5 mg oral tablet) 1 tab(s) Oral Daily as needed as needed for anxiety for 30Days. Refills: 0. Next Dose: Allergy Info:?? methadone-like opiates Medications Given This Visit Future Orders ?MM Digital Mammo Screening? Order Date:10/02/22?- Complete on or after?10/02/22 Vital Signs Height 153 cm Weight 47 kg BMI 20.08 kg/m2 Blood Pressure 105 mm Hg/70 mm Hg Temperature Pulse Rate 90 bpm Respiratory Rate 02 Sat Mode of Delivery 99 %/Room air You can now view a summary of your hospital visit from the comfort of your home through a free online portal called [employer]. [employer] is a website that allows you to securely view your medical information including discharge summary, medications and follow-up visits. ??You can alsosend a secure electronic message to your doctor???s office to request appointments, renew medications or just ask a question. You can enroll at [email or web address] or register during your next office [...] primary care provider, you may find a [facility] provider by calling [employer] [facility] at [phone]. For information about the plan of care [...] Team Personnel Name: Ken Milan DO Position: [facility] Physician - Primary Care Member Role: PCP Address: Address: [address] [place] [address]- Care Team Related Persons Name: SUAD PARKER Name: GUERO DYKES Address: [address] [place] [address] Name: MYRA HOSKINS Address: home [address] [place] [address]
[2023-12-04 17:15] LABS: Alanine Aminotransferase 23 U/L (0-31); Albumin Level 4.7 g/dL (3.5-5.0); Alkaline Phosphatase 71 U/L (39-117); Anion Gap 15 (12-20); Aspartate Amino Transferase 19 U/L (5-31); Bilirubin Total 0.6 mg/dL (0.0-1.0); Blood Urea Nitrogen 12 mg/dL (9-16); Calcium 10.2 mg/dL (8.4-10.2); Carbon Dioxide 22 mmol/L (22-29); Chloride 111 mmol/L (96-108); Creatinine Clr Calc Pharmacy 68.5; Estimated Glomerular Filt Rate > 60; Glucose Random 98 mg/dL (60-115); Lipase 17 U/L (8-78); Magnesium 2.4 mg/dL (1.6-2.6); Potassium 3.8 mmol/L (3.3-5.1); Sodium 144 mmol/L (135-145); Total Protein 7.8 g/dL (6.5-8.0)
[2023-12-04 18:24] LABS: Influenza A PCR NEGATIVE (Negative); Influenza B PCR NEGATIVE (Negative); Resp Syncy Virus RNA Qual PCR NEGATIVE (Negative); SARS COV2 PCR INHOUSE NEGATIVE (Negative)
[2023-12-04 20:10] VITALS: BP 110/73; PULSE 72; RESP 20; TEMP 35.9; O2SAT 97
[2023-12-04 21:19] VITALS: BP 136/70; PULSE 73; RESP 16; TEMP 36.8; O2SAT 100
[2023-12-04 22:37] VITALS: BP 136/70; PULSE 73; RESP 16; TEMP 36.8; O2SAT 100
== END 2023-12-04 22:39 | disposition home or self-care (01) ==
PROVIDERS: Physician Assistant Medical; Emergency Provider Emergency Medicine Emergency Medical Services
DX: R11.2 Nausea with vomiting, unspecified (principal); Z03.818 Encounter for observation for suspected exposure to other biological agents ruled out; F41.9 Anxiety disorder, unspecified; F12.90 Cannabis use, unspecified, uncomplicated; Z79.899 Other long term (current) drug therapy
CPT/HCPCS: 0241U; 80053; 81001; 81025; 83690; 83735; 85025; 87086; 99283

== ENCOUNTER 2024-07-19 14:45 | Emergency (ER) | payer OTHER, SELFPAY ==
--- NOTE | ~2024-07-19 | CT_ITS ---
CLINICAL HISTORY: vertigo CT Head Without Contrast: Comparison: None Findings: Cortical sulci are symmetric Basal ganglia are unremarkable No shift in midline structures No intraparenchymal bleeding or abnormal extra axial blood fluid collections Normal pituitary size. Posterior fossa and cerebellar pontine angles are unremarkable. Clear paranasal sinuses. Mastoid air cells and middle ear cavities are clear. Unremarkable orbital structures No depressed fractures Impression: Unremarkable CT of the head, no signs of acute trauma This document has been electronically signed by: Addi Kern MD on 07/19/2024 20:19:08
[2024-07-19 15:02] VITALS: BP 121/55; PULSE 94; RESP 14; TEMP 37.2; O2SAT 95; BMI 23.2
--- NOTE | 2024-07-19 15:02 | ED.GENADULT ---
HPI - General Adult General Chief complaint: Dizziness Stated complaint: Dizziness Time Seen by Provider: 07/19/24 18:25 Related Data Previous Rx's ?Medication ?Instructions ?Recorded lorazepam 0.5 mg tablet (Ativan) 0.5 mg PO TID PRN anxiety #10 tabs 04/26/20 ondansetron 4 mg disintegrating 4 mg PO Q6-8H PRN nausea and 12/04/23 tablet vomiting #14 tabs venlafaxine 75 mg capsule,extended 75 mg PO DAILY 90 days #90 caps 12/04/23 release 24 hr meclizine 25 mg tablet 25 mg PO TID PRN dizziness #20 tabs 07/19/24 Allergies Allergy/AdvReac Type Severity Reaction Status Date / Time oxycodone AdvReac Nausea and Verified 07/19/24 15:03 Vomiting PMFSH Past Medical History Medical History Anxiety Social History Social History Alcohol intake: never Smoked in Last 30 Days: Yes Use of substances other than those prescribed or required for medical reasons: Yes Substance Use Type: Marijuana Substance Use Frequency: Daily Advance Directives: No Advance Directives Information Provided: No Do you have a plan to hurt others: No Plan Patient : No Physical Exam ED Vital Signs: Vital Signs - 24 hr 07/19/24 15:02 07/19/24 19:14 Temperature 99.0 F 97.9 F Pulse Rate 94 68 Respiratory Rate 14 16 Blood Pressure 121/55 L 123/74 Pulse Oximetry 95 99 Oxygen Delivery Method Room Air Room Air BMI result Body Mass Index 23.2 Course Course Course Narrative: RME, this is a rapid medical exam performed by Edinson Putnam please refer to primary provider for complete H&P- 43 year old female presents for evaluation of dizziness which she describes as room spinning. She has associated nausea. She also complains of left ear discomfort. Symptoms started 5 days ago. Denies head trauma. No personal history of vertigo. Plan for EKG, labs, , and UA Medications Administered Discontinued Medications Generic Name Dose Route Start Last Admin Trade Name Freq PRN Reason Stop Dose Admin Meclizine HCl 25 mg 07/19/24 19:00 07/19/24 19:12 Meclizine Hcl 25 Mg Tablet PO 07/19/24 19:01 25 mg ONCE ONE Administration Medical Decision Making Lab Data 07/19/24 15:21 07/19/24 15:21 Labs: Lab Results 07/19/24 07/19/24 Range/Units 15:21 19:48 WBC 13.7 H (4.8-10.8) X10*3/uL RBC 4.66 (4.20-5.50) X10*6/uL Hgb 14.5 (12.0-16.0) g/dl Hct 43.0 (37.0-47.0) % MCV 92.3 (80.0-98.0) fL MCH 31.1 (27.0-33.0) pg MCHC 33.7 (31.0-35.0) g/dl RDW 12.6 (11.0-16.0) % Plt Count 336 (160-400) X10*3/uL MPV 8.8 L (9.4-12.3) fL Immature Gran % (Auto) 0.2 (0.0-0.4) % Neut % (Auto) 57.7 (45-73) % Lymph % (Auto) 32.4 (20-40) % [place] % (Auto) 9.1 (2-11) % Eos % (Auto) 0.2 (0-4) % Baso % (Auto) 0.4 (0-2) % Lymph # (Auto) 4.4 (1.2-4.9) X10*3/uL [place] # (Auto) 1.2 (0.1-1.2) X10*3/uL Eos # (Auto) 0.0 (0.0-0.4) X10*3/uL Baso # (Auto) 0.1 (0.0-0.2) X10*3/uL Abs Immat Gran (auto) 0.03 (0.00-0.03) X10*3/uL Absolute Neuts (auto) 7.9 (2.0-8.3) x10*3/uL Absolute Nucleated RBC 0.000 (0.0-0.012) X10*3/uL Nucleated RBC % (auto) 0.0 (0.0-0.2) /100WBC Sodium 140 (135-145) mmol/L Potassium 4.0 (3.3-5.1) mmol/L Chloride 109 H (96-108) mmol/L Carbon Dioxide 22 (22-29) mmol/L Anion Gap 13 (12-20) BUN 8 L (9-16) mg/dL Creatinine 0.64 (0.5-1.4) mg/dL Estim Creat Clear Calc 79.7 Estimated GFR > 60 Random Glucose 86 (60-115) mg/dL Calcium 9.5 D (8.4-10.2) mg/dL Beta HCG, Quant < 2 mIU/mL Urine Color Yellow Urine Appearance Cloudy Urine pH >= 9.0 (5.0-9.0) Ur Specific [place] 1.015 (1.005-1.025) Urine Protein Negative (Neg-Trace) mg/dL Urine Glucose (UA) Negative (Negative) mg/dL Urine Ketones Negative (Negative) mg/dL Urine Blood Small (1+) H (Negative) Urine Nitrite Negative (Negative) Ur Leukocyte Esterase Negative (Negative) Urine RBC >20 H (0-2) /HPF Urine WBC 0-5 (0-5) /HPF Ur Squamous Epith Cells 6-10 (0-2) /HPF Urine Bacteria 1+ (None Seen) Hyaline Casts 0-2 (0-2) /LPF Discharge Plan Discharge Clinical Impression: Peripheral positional vertigo Patient Disposition: Home, Self-Care Instructions: Vertigo (DC) Prescriptions: New meclizine 25 mg tablet 25 mg PO TID PRN (Reason: dizziness) Qty: 20 0RF No Action lorazepam [Ativan] 0.5 mg tablet 0.5 mg PO TID PRN (Reason: anxiety) Qty: 10 0RF ondansetron 4 mg tablet,disintegrating 4 mg PO Q6-8H PRN (Reason: nausea and vomiting) Qty: 14 0RF venlafaxine 75 mg capsule,extended release 24hr 75 mg PO DAILY 90 Days Qty: 90 0RF Referrals: Anny Cedeño MD [Physician] - 07/26/24 Physician,Unknown J [Primary Care Provider] - Print Language: [place]
--- NOTE | 2024-07-19 15:03 | ECG_ITS ---
Test Reason : DIZZY Blood Pressure : */* mmHG Vent. Rate : 83 BPM Atrial Rate : 83 BPM P-R Int : 144 ms QRS Dur : 68 ms QT Int : 364 ms P-R-T Axes : 73 18 56 degrees QTcB Int : 427 ms Normal sinus rhythm Septal infarct , age undetermined Abnormal ECG When compared with ECG of 26-Apr-2020 10:02, Nonspecific T wave abnormality no longer evident in Inferior leads Referred By: Saeid Putnam Electronically Signed By: David Bojorquez
[2024-07-19 15:26] LABS: MANUAL DIFF FLAG NO
[2024-07-19 15:28] LABS: Basophils Absolute Auto 0.1 X10*3/uL (0.0-0.2); Basophils Percent Auto 0.4 % (0-2); Eosinophils Percent Auto 0.2 % (0-4); Hemoglobin 14.5 g/dl (12.0-16.0); Imm Gran Abs Auto 0.03 X10*3/uL (0.00-0.03); Imm Gran Pct Auto 0.2 % (0.0-0.4); Lymphocytes Absolute Auto 4.4 X10*3/uL (1.2-4.9); Lymphocytes Percent Auto 32.4 % (20-40); Mean Corpuscular HGB Conc 33.7 g/dl (31.0-35.0); Mean Corpuscular Hemoglobin 31.1 pg (27.0-33.0); Mean Corpuscular Volume 92.3 fL (80.0-98.0); Mean Platelet Volume 8.8 fL (9.4-12.3); Monocytes Absolute Auto 1.2 X10*3/uL (0.1-1.2); Monocytes Percent Auto 9.1 % (2-11); Neutrophils Absolute Auto 7.9 x10*3/uL (2.0-8.3); Neutrophils Percent Auto 57.7 % (45-73); Platelet Count 336 X10*3/uL (160-400); Red Blood Count 4.66 X10*6/uL (4.20-5.50); Red Cell Distribution Width 12.6 % (11.0-16.0); White Blood Count 13.7 X10*3/uL (4.8-10.8)
[2024-07-19 15:48] LABS: Anion Gap 13 (12-20); Blood Urea Nitrogen 8 mg/dL (9-16); Calcium 9.5 mg/dL (8.4-10.2); Carbon Dioxide 22 mmol/L (22-29); Chloride 109 mmol/L (96-108); Creatinine Clr Calc Pharmacy 79.7; Estimated Glomerular Filt Rate > 60; Glucose Random 86 mg/dL (60-115); Sodium 140 mmol/L (135-145)
[2024-07-19 15:50] LABS: HCG Quantitative < 2 mIU/mL
--- NOTE | 2024-07-19 19:03 | ED.DIZZY ---
HPI - Dizziness General Chief Complaint: Dizziness Stated Complaint: Dizziness Time Seen by Provider: 07/19/24 18:25 History of Present Illness HPI Narrative: Patient is a 43-year-old female with a history of having spinning sensation. Is fairly sudden in onset it is worse when she turns to the right side. There is no new medication. There is no fever no chills. There is no chest pain. There is no diaphoresis is no focal weakness there is no alcohol there is no recreational drugs. Patient use marijuana occasionally it is not new. Patient denies any history of diabetes, hypertension, high cholesterol. No history of HI no family history of HI no leg swelling no history of blood clots no history of cancer. No focal weakness. The symptoms been ongoing for the last 2 days. Related Data Previous Rx's ?Medication ?Instructions ?Recorded lorazepam 0.5 mg tablet (Ativan) 0.5 mg PO TID PRN anxiety #10 tabs 04/26/20 ondansetron 4 mg disintegrating 4 mg PO Q6-8H PRN nausea and 12/04/23 tablet vomiting #14 tabs venlafaxine 75 mg capsule,extended 75 mg PO DAILY 90 days #90 caps 12/04/23 release 24 hr meclizine 25 mg tablet 25 mg PO TID PRN dizziness #20 tabs 07/19/24 Allergies Allergy/AdvReac Type Severity Reaction Status Date / Time oxycodone AdvReac Nausea and Verified 07/19/24 15:03 Vomiting Review of Systems Review of Systems: Positive dizziness positive spinning sensation Yes all other systems are reviewed and are negative PMFSH Past Medical History Attestation statement: The following information was validated with the patient. Medical History Anxiety Social History Social History Alcohol intake: never Smoked in Last 30 Days: Yes Use of substances other than those prescribed or required for medical reasons: Yes Substance Use Type: Marijuana Substance Use Frequency: Daily Advance Directives: No Advance Directives Information Provided: No Do you have a plan to hurt others: No Plan Patient : No Physical Exam Vital Signs: Vital Signs: Last Vital Signs Temp 97.9 F 07/19/24 19:14 Pulse 68 07/19/24 19:14 Resp 16 07/19/24 19:14 BP 123/74 07/19/24 19:14 Pulse Ox 99 07/19/24 19:14 O2 Del Method Room Air 07/19/24 19:14 BMI result Body Mass Index 23.2 Appearance: Alert. Oriented X3. No acute distress. Eyes: Pupils equal, round and reactive to light. ENT: Pharynx normal. Neck: Normal inspection. Neck supple. No lymph nodes noted. No crepitus CVS: Normal heart rate and rhythm. Pulses normal. Normal S1 and S2 Respiratory: No respiratory distress. Breath sounds normal. No Wheezing. No rales Abdomen: Soft and nontender. No rigidity. No distention. good BS x4 Skin: Skin warm and dry. Normal skin color. Normal skin turgor. Extremities: No lower extremity edema. Neurovascular intact to all extremities. No Lacerations. No Rash Neuro: Oriented X 3. No motor deficit. No sensory deficit. Moving all extermities. No slurred speech. Turning patient's head to the right reproduces the symptoms of spinning Medications Administered Discontinued Medications Generic Name Dose Route Start Last Admin Trade Name Freq PRN Reason Stop Dose Admin Meclizine HCl 25 mg 07/19/24 19:00 07/19/24 19:12 Meclizine Hcl 25 Mg Tablet PO 07/19/24 19:01 25 mg ONCE ONE Administration Medical Decision Making Medical Decision Making [facility] Narrative: Patient presented today with having episodes of spinning sensation worse with changing certain positions. Neurologically intact otherwise well-appearing when she had the spinning and this extreme patient's CT scan of the head was grossly negative by my interpretation patient given Antivert with good results. Neurologically intact. Will discharge patient home Differential Diagnosis Differential Diagnoses: The differential diagnosis associated with the presentation includes Vertigo likely peripheral Admission/Observation Consideration of admission/observation: Escalation of care including admission/observation considered Lab Data [facility] Lab Attestation statement: I reviewed the patient's lab results. 07/19/24 15:21 07/19/24 15:21 Labs: Lab Results 07/19/24 07/19/24 Range/Units 15:21 19:48 WBC 13.7 H (4.8-10.8) X10*3/uL RBC 4.66 (4.20-5.50) X10*6/uL Hgb 14.5 (12.0-16.0) g/dl Hct 43.0 (37.0-47.0) % MCV 92.3 (80.0-98.0) fL MCH 31.1 (27.0-33.0) pg MCHC 33.7 (31.0-35.0) g/dl RDW 12.6 (11.0-16.0) % Plt Count 336 (160-400) X10*3/uL MPV 8.8 L (9.4-12.3) fL Immature Gran % (Auto) 0.2 (0.0-0.4) % Neut % (Auto) 57.7 (45-73) % Lymph % (Auto) 32.4 (20-40) % [place] % (Auto) 9.1 (2-11) % Eos % (Auto) 0.2 (0-4) % Baso % (Auto) 0.4 (0-2) % Lymph # (Auto) 4.4 (1.2-4.9) X10*3/uL [place] # (Auto) 1.2 (0.1-1.2) X10*3/uL Eos # (Auto) 0.0 (0.0-0.4) X10*3/uL Baso # (Auto) 0.1 (0.0-0.2) X10*3/uL Abs Immat Gran (auto) 0.03 (0.00-0.03) X10*3/uL Absolute Neuts (auto) 7.9 (2.0-8.3) x10*3/uL Absolute Nucleated RBC 0.000 (0.0-0.012) X10*3/uL Nucleated RBC % (auto) 0.0 (0.0-0.2) /100WBC Sodium 140 (135-145) mmol/L Potassium 4.0 (3.3-5.1) mmol/L Chloride 109 H (96-108) mmol/L Carbon Dioxide 22 (22-29) mmol/L Anion Gap 13 (12-20) BUN 8 L (9-16) mg/dL Creatinine 0.64 (0.5-1.4) mg/dL Estim Creat Clear Calc 79.7 Estimated GFR > 60 Random Glucose 86 (60-115) mg/dL Calcium 9.5 D (8.4-10.2) mg/dL Beta HCG, Quant < 2 mIU/mL Urine Color Yellow Urine Appearance Cloudy Urine pH >= 9.0 (5.0-9.0) Ur Specific [place] 1.015 (1.005-1.025) Urine Protein Negative (Neg-Trace) mg/dL Urine Glucose (UA) Negative (Negative) mg/dL Urine Ketones Negative (Negative) mg/dL Urine Blood Small (1+) H (Negative) Urine Nitrite Negative (Negative) Ur Leukocyte Esterase Negative (Negative) Urine RBC >20 H (0-2) /HPF Urine WBC 0-5 (0-5) /HPF Ur Squamous Epith Cells 6-10 (0-2) /HPF Urine Bacteria 1+ (None Seen) Hyaline Casts 0-2 (0-2) /LPF Independent Interpretation I performed an independent interpretation of an: EKG (Sinus heart rate is 80 [place] QRS QTC within normal limits is no acute ST segment elevation) and CT Scan (CT scan of the head was grossly negative) Radiology Impression Discussion of test interpretation with radiology: I have reviewed the radiologist's reading. Discharge Plan Discharge Clinical Impression: Peripheral positional vertigo Patient Disposition: Home, Self-Care Instructions: Vertigo (DC) Prescriptions: New meclizine 25 mg tablet 25 mg PO TID PRN (Reason: dizziness) Qty: 20 0RF No Action lorazepam [Ativan] 0.5 mg tablet 0.5 mg PO TID PRN (Reason: anxiety) Qty: 10 0RF ondansetron 4 mg tablet,disintegrating 4 mg PO Q6-8H PRN (Reason: nausea and vomiting) Qty: 14 0RF venlafaxine 75 mg capsule,extended release 24hr 75 mg PO DAILY 90 Days Qty: 90 0RF Referrals: Anny Cedeño MD [Physician] - 07/26/24 Physician,Unknown J [Primary Care Provider] - Print Language: Syriac
[2024-07-19] MEDS: Meclizine HCl 25 MG TABLET PO (19:12)
[2024-07-19 19:14] VITALS: BP 123/74; PULSE 68; RESP 16; TEMP 36.6; O2SAT 99
[2024-07-19 19:58] LABS: Appearance Urine Cloudy; Color Urine Yellow; Glucose Urine UA Negative (Negative); Leukocyte Esterase Urine Negative (Negative); Nitrite Urine Negative (Negative); PH >= 9.0 (5.0-9.0); Specific Gravity - Urine 1.015 (1.005-1.025); UMIC TRIGGER UACC YES; Urine Blood Small (1+) (Negative); Urine Ketones Negative (Negative); Urine Protein Negative (Neg-Trace)
[2024-07-19 20:00] LABS: Bacteria Urine 1+ (None Seen); Hyaline Casts Urine 0-2 /LPF (0-2); RBC Urine >20 /HPF (0-2); WBC Urine 0-5 /HPF (0-5)
[2024-07-19 20:49] VITALS: BP 123/74; PULSE 68; RESP 16; TEMP 36.6; O2SAT 99
== END 2024-07-19 20:50 | disposition home or self-care (01) ==
PROVIDERS: Physician Assistant; Emergency Provider Emergency Medicine Emergency Medical Services
DX: H81.399 Other peripheral vertigo, unspecified ear (principal); R11.0 Nausea
CPT/HCPCS: 36415; 70450; 80048; 81001; 84702; 85025; 93005; 99284; 99285

== ENCOUNTER → 2024-07-19 15:03 | Outpatient (BNV) | payer OTHER, SELFPAY | PROVIDERS: Emergency Provider Emergency Medicine Emergency Medical Services; Visit Provider Internal Medicine Cardiovascular Disease | DX: R94.31 Abnormal electrocardiogram [ECG] [EKG] (principal); R42 Dizziness and giddiness | CPT/HCPCS: 93010 ==

== ENCOUNTER → 2024-07-19 19:00 | Outpatient (BNV) | payer OTHER, SELFPAY | PROVIDERS: Emergency Provider Emergency Medicine Emergency Medical Services; Visit Provider Radiology Diagnostic Radiology | DX: R42 Dizziness and giddiness (principal) | CPT/HCPCS: 70450 ==